=== PATIENT | male | born 1940 | race Caucasian/White ===

== ENCOUNTER 2020-03-04 14:03 | Inpatient (IN) ==
[2020-03-04] MEDS ORDERED: DECADRON INJ PRESERVATIVE-FREE IVP ONE (14:18)
[2020-03-04] MEDS ORDERED: ZITHROMAX INJ 500 MG VIAL 500 MG in NS 250 ML IV 250 ML IV SCH (14:21)
--- NOTE | 2020-03-04 14:26 | DR.URIAD ---
HPI Time Seen Time Seen by Provider: 03/04/20 14:17 PCP Primary Care Physician: MIGUEL CORONA HPI Comment HPI Comment: Patient presents with the complaint of subjective fever, cough x 3- 4 days. Notes that his is currently hospitalized secondary to COVID infection. Notes that he has been short of breath with walking and states that his oxygen saturation drops from the mid 90s to the mid 80s with exertion. Notes cough is productive of phlegm. He notes that he tested negative for COVID about 4 days ago, but he has had these symptoms for about 10 days. Complaint Chief Complaint:: PT TO ER WITH C/O > CCC, FEVER , WEAKNESS , AND SOB FOR THE LAST FOUR DAYS , BR PTS IS POSTIVE FOR COVID SHE IS IN [facility] DUE TO COVID ,,BR PT IS HAVING [place], PT'S LUNGS BLOCK ARE DIMINISHED .. PT DENIES FEVER AT HOME BUT STATES HE WENT TO HIS PCP OFFICE AND HIS TEMP WAS >..BR Source History Provided: Patient Mode of Arrival Mode of Arrival: Ambulatory Timing Onset of Chief Complaint: 03/01/20 PMH PMH Past Medical History: Yes Past Medical History: Diabetes and Hypertension Past Surgical History: Yes Past Surgical History Comment: CORNEAL SURGERY , Family History History of Family Medical Conditions: No Social History Does patient currently use any type of tobacco product: No Have you used tobacco products in the last 12 months: No Type of Tobacco Use: None Does any household member use tobacco: No Alcohol Use: None Do you use any recreational Drugs:: No Lives With: Family Lives Where: Home Infectious screening In the last 2 months have you had wt loss of >10#?: NO Have you had fever, night sweats or hemotysis?: No Have you traveled outside the country in the last 6 months?: No Isolation: Standard ROS Review of Systems Constitutional: See HPI and Fever Respiratoy: Productive Cough and Short of Breath All Other Systems: Reviewed and Negative PE Vital Signs Vitals: Temperature 98.2 F Pulse Rate 91 Respiratory Rate 30 Blood Pressure 160/77 O2 Sat by Pulse Oximetry 95 General Limitations: No Limitations General Appearance: Alert, In No Apparent Distress and Other (tremulous ) Head Head Exam: Normal Inspection, Atraumatic and Normocephalic Eyes Eye exam: Normal Appearance and EOMI ENT ENT Exam: Normal Exam and Normal Oropharynx Mouth Exam: Normal Inspection Neck Neck Exam: Normal Inspection and Trachea Midline Chest Chest Inspection: Normal Inspection and Symmetric Chest Wall Rise Respiratory Respiratory Exam: Bilateral: Rhonchi Cardiovascular Cardiovascular Exam: Regular Rate, Normal Rhythm and Normal Heart Sounds Abdominal Exam Abdominal Exam: Normal Inspection, Normal Bowel Sounds and Soft Extremeties Extremities Exam: Normal Inspection Neurologic Neurological Exam: Alert and Oriented X3 Psychiatric Psychiatric Exam: Normal Affect and Normal Mood Skin Skin Exam: Warm, Dry and Intact COURSE Treatment Treatment: Spoke with Dr. Gonzalez who accepts this patient for admission ROR Labs Reviewed Result Diagrams: 03/04/20 14:40 03/04/20 14:40 Laboratory: WBC 5.6 X10^3/uL (3.6-10.0) 03/04/20 14:40 RBC 4.63 X10^6/uL (4.7-6.0) L 03/04/20 14:40 Hgb 13.7 g/dL (13.5-18.0) 03/04/20 14:40 Hct 41.0 % (42.0-54.0) L 03/04/20 14:40 MCV 88.5 fL (80.0-100.0) 03/04/20 14:40 MCH 29.6 pg (27.0-34.0) 03/04/20 14:40 MCHC 33.5 g/dL (33.0-35.0) 03/04/20 14:40 RDW 14.0 % (11.6-16.5) 03/04/20 14:40 Plt Count 140 X10^3/uL (150.0-450.0) L 03/04/20 14:40 MPV 7.7 fL (7.4-11.0) 03/04/20 14:40 Neut % (Auto) 65.6 % (42.0-75.0) 03/04/20 14:40 Lymph % (Auto) 21.9 % (21.0-51.0) 03/04/20 14:40 [place] % (Auto) 12.0 % (0.0-13.0) 03/04/20 14:40 Eos % (Auto) 0.2 % (0.9-2.9) L 03/04/20 14:40 Baso % (Auto) 0.3 % (0.2-1.0) 03/04/20 14:40 Neut # (Auto) 3.6 x10^3/uL (2.2-4.8) 03/04/20 14:40 Lymph # (Auto) 1.2 X10^3/uL (1.3-2.9) L 03/04/20 14:40 [place] # (Auto) 0.7 x10^3/uL (0.3-0.8) 03/04/20 14:40 Eos # (Auto) 0.0 x10^3/uL (0.0-0.2) 03/04/20 14:40 Baso # (Auto) 0.0 X10^3/uL (0.0-0.1) 03/04/20 14:40 Absolute Nucleated RBC 0.0 /100WBC 03/04/20 14:40 D-Dimer 0.46 ug/ml (0.0-0.57) 03/04/20 14:40 Sample Site Rrad 03/04/20 14:46 ABG pH 7.440 (7.35-7.45) 03/04/20 14:46 ABG pCO2 34.0 mmHg (35.0-45.0) L 03/04/20 14:46 ABG pO2 57.0 mmHg (80.0-100.0) L 03/04/20 14:46 ABG HCO3 23.1 mmol/L (22-26) 03/04/20 14:46 ABG O2 Saturation 90.0 % (90-100) 03/04/20 14:46 ABG Base Excess -0.6 mmol/L (-2.0-2.0) 03/04/20 14:46 Capo Test Pos 03/04/20 14:46 A-a Gradient 50.0 mmHg 03/04/20 14:46 FiO2 21.0 03/04/20 14:46 Blood Gas Comments Pt melinda well elj 03/04/20 14:46 Sodium 141 mmol/L (136-145) 03/04/20 14:40 Corrected Sodium TNP 03/04/20 14:40 Potassium 4.5 mmol/L (3.5-5.1) 03/04/20 14:40 Chloride 104 mmol/L (98-107) 03/04/20 14:40 Carbon Dioxide 25.7 mmol/L (21-32) 03/04/20 14:40 BUN 26 mg/dL (7-18) H 03/04/20 14:40 Creatinine 2.21 mg/dL (0.70-1.30) H 03/04/20 14:40 Est GFR (MDRD) Af Amer 37 (>60) L 03/04/20 14:40 Est GFR (MDRD) Non-Af 31 (>60) L 03/04/20 14:40 Glucose 110 mg/dL (65-99) H 03/04/20 14:40 Calcium 9.2 mg/dL (8.5-10.1) 03/04/20 14:40 Corrected Calcium 9.8 mg/dL (8.5-10.1) 03/04/20 14:40 Total Bilirubin 0.60 mg/dL (0.2-1.0) 03/04/20 14:40 AST 63 Units/L (15-37) H 03/04/20 14:40 ALT 39 Units/L (12-78) 03/04/20 14:40 Alkaline Phosphatase 35 Units/L (46-116) L 03/04/20 14:40 C-Reactive Protein 94.80 mg/L (0-3.0) H 03/04/20 14:40 Total Protein 7.9 g/dL (6.4-8.2) 03/04/20 14:40 Albumin 3.3 g/dL (3.4-5.0) L 03/04/20 14:40 Globulin 4.6 g/dL (2.5-4.5) H 03/04/20 14:40 Albumin/Globulin Ratio 0.7 Ratio (1.1-2.1) L 03/04/20 14:40 Influenza Type A Ag Negative-presumptive (NEGATIVE) 03/04/20 14:29 Influenza Type B Ag Negative-presumptive (NEGATIVE) 03/04/20 14:29 Other Results Comments: HISTORY COUGH, COVID EXPOSURE STUDY CHEST, 1 VIEW COMPARISON None FINDINGS The trachea is midline. The cardiac silhouette is unremarkable. Patchy bilateral airspace opacities. The bony thorax is unremarkable. IMPRESSION Patchy bilateral airspace opacities concerning for pneumonia or viral pneumonitis. Electronically signed by: OSCAR ROLON (Mar 04, 2020 15:08:20) Opioid Opioid Risk Tool Total: 0 Total Score Risk Category: Low Risk Copyright: Krystian PALOMINO predicting aberrant behaviors Diagnosis Discharge Problem: Pneumonia due to 2019 novel coronavirus, Acute renal failure
[2020-03-04] MEDS ORDERED: NS 1000 ML 1,000 ML ONE (14:37)
[2020-03-04] MEDS ORDERED: ZITHROMAX INJ 500 MG VIAL IV ONE (14:37)
[2020-03-04] MEDS ORDERED: NS 250 ML IV 250 ML IV ONE (14:37)
[2020-03-04] MEDS ORDERED: DECADRON INJ ONE (14:37)
[2020-03-04 14:53] LABS: ABG ALLEN TEST POS; ABG BASE EXCESS -0.6 mmol/L (-2.0-2.0); ABG HCO3 23.1 mmol/L (22-26)
[2020-03-04 15:06] LABS: BASOPHILS % (AUTO) 0.3 % (0.2-1.0); EOSINOPHILS % (AUTO) 0.2 % (0.9-2.9); HEMOGLOBIN 13.7 g/dL (13.5-18.0); LYMPHOCYTES # (AUTO) 1.2 X10^3/uL (1.3-2.9); LYMPHOCYTES % (AUTO) 21.9 % (21.0-51.0); MEAN CORPUSCULAR HEMOGLOBIN 29.6 pg (27.0-34.0); MEAN CORPUSCULAR HGB CONC 33.5 g/dL (33.0-35.0); MEAN CORPUSCULAR VOLUME 88.5 fL (80.0-100.0); MEAN PLATELET VOLUME 7.7 fL (7.4-11.0); MONOCYTES # (AUTO) 0.7 x10^3/uL (0.3-0.8); NEUTROPHILS # (AUTO) 3.6 x10^3/uL (2.2-4.8); NEUTROPHILS % (AUTO) 65.6 % (42.0-75.0); PLATELET COUNT 140 X10^3/uL (150.0-450.0); RED BLOOD COUNT 4.63 X10^6/uL (4.7-6.0); WHITE BLOOD COUNT 5.6 X10^3/uL (3.6-10.0)
--- NOTE | 2020-03-04 15:06 | RAD ---
HISTORYCOUGH, COVID EXPOSURESTUDYCHEST, 1 VIEWCOMPARISONNoneFINDINGSThe trachea is midline. The cardiac silhouette is unremarkable. Patchy bilateral airspace opacities. The bony thorax is unremarkable.IMPRESSIONPatchy bilateral airspace opacities concerning for pneumonia or viral pneumonitis.Electronically signed by: OSCAR ROLON (Mar 04, 2020 15:08:20)
[2020-03-04 15:17] LABS: ALANINE AMINOTRANSFERASE 39 Units/L (12-78); ALBUMIN 3.3 g/dL (3.4-5.0); ALKALINE PHOSPHATASE 35 Units/L (46-116); ASPARTATE AMINO TRANSFERASE 63 Units/L (15-37); BLOOD UREA NITROGEN 26 mg/dL (7-18); CALCIUM 9.2 mg/dL (8.5-10.1); CARBON DIOXIDE 25.7 mmol/L (21-32); CHLORIDE 104 mmol/L (98-107); COR CA(FOR HYPOALB) 9.8 mg/dL (8.5-10.1); CREATININE 2.21 mg/dL (0.70-1.30); SODIUM 141 mmol/L (136-145); TOTAL PROTEIN 7.9 g/dL (6.4-8.2); eGFR NON BLACK RACES 31 (>60)
[2020-03-04 15:56] LABS: STREP A BY PCR NOT DETECTED (NOT DETECT)
[2020-03-04] MEDS: ZITHROMAX INJ 500 MG VIAL 500 MG in NS 250 ML IV 250 ML IV SCH (17:04)
[2020-03-04] MEDS: NS 1000 ML 1,000 ML IV SCH (17:46)
[2020-03-04] MEDS ORDERED: PULMICORT NEB TX 0.5 MG NEB ONE (18:54)
[2020-03-04] MEDS ORDERED: VENTOLIN or PROAIR HFA ONE (18:59)
[2020-03-04] MEDS: PULMICORT NEB TX 0.5 MG NEB SCH (20:05)
[2020-03-04] MEDS: VENTOLIN or PROAIR HFA IN SCH (20:05)
[2020-03-04] MEDS ORDERED: HumuLIN R ONE (20:31)
[2020-03-04] MEDS: HumuLIN R SUBCUT PRN ×2 (20:32→20:35)
[2020-03-05 05:05] LABS: BASOPHILS % (AUTO) 0.2 % (0.2-1.0); HEMATOCRIT 39.7 % (42.0-54.0); LYMPHOCYTES % (AUTO) 24.1 % (21.0-51.0); MEAN CORPUSCULAR HEMOGLOBIN 29.2 pg (27.0-34.0); MEAN CORPUSCULAR HGB CONC 32.7 g/dL (33.0-35.0); MEAN CORPUSCULAR VOLUME 89.3 fL (80.0-100.0); MONOCYTES # (AUTO) 0.3 x10^3/uL (0.3-0.8); MONOCYTES % (AUTO) 8.3 % (0.0-13.0); NEUTROPHILS # (AUTO) 2.7 x10^3/uL (2.2-4.8); NEUTROPHILS % (AUTO) 67.4 % (42.0-75.0); PLATELET COUNT 142 X10^3/uL (150.0-450.0); RED BLOOD COUNT 4.44 X10^6/uL (4.7-6.0); RED CELL DISTRIBUTION WIDTH 13.8 % (11.6-16.5); WHITE BLOOD COUNT 4.1 X10^3/uL (3.6-10.0)
[2020-03-05 05:08] LABS: ALBUMIN 2.8 g/dL (3.4-5.0); CARBON DIOXIDE 24.2 mmol/L (21-32); CREATININE 2.22 mg/dL (0.70-1.30); TOTAL PROTEIN 7.3 g/dL (6.4-8.2)
[2020-03-05 05:17] LABS: CKMB % 0.4 % (<4); CREATINE KINASE 245 Units/L (39-308); CREATINE KINASE MB < 1.0 ng/mL (0-4.0); TROPONIN I < 0.02 ng/mL (0-1.5)
[2020-03-05] MEDS: HumuLIN R SUBCUT PRN ×2 (06:31→21:39)
[2020-03-05 07:47] VITALS: BMI 34.0
[2020-03-05] MEDS ORDERED: REMDESIVIR (INVESTIGATIONAL DRUG GS-5734) 200 MG in NS 250 ML IV 250 ML IV SCH (08:53)
[2020-03-05] MEDS: PULMICORT NEB TX 0.5 MG NEB SCH ×2 (09:00→21:04)
[2020-03-05] MEDS: VENTOLIN or PROAIR HFA IN SCH ×4 (09:00→21:04)
[2020-03-05] MEDS ORDERED: COMBIGAN EYE DROPS OP SCH (09:00)
[2020-03-05] MEDS: ASPIRIN 81 MG CHEWTAB PO SCH (09:37)
[2020-03-05] MEDS: ZITHROMAX INJ 500 MG VIAL 500 MG in NS 250 ML IV 250 ML IV SCH (09:38)
[2020-03-05] MEDS: NORVASC TAB 5 MG PO SCH (09:38)
[2020-03-05] MEDS: SOLU-Medrol 125 MG VIAL IVP SCH ×2 (09:38→21:35)
[2020-03-05] MEDS: PROTONIX TAB 40 MG PO SCH (09:38)
[2020-03-05] MEDS: XANAX PO PRN ×2 (09:40→21:37)
[2020-03-05 10:17] LABS: CKMB % 0.5 % (<4); CREATINE KINASE 212 Units/L (39-308); CREATINE KINASE MB < 1.0 ng/mL (0-4.0); TROPONIN I < 0.02 ng/mL (0-1.5)
--- NOTE | 2020-03-05 11:33 | DR.H&P ---
H&P History & Physical for Day of: H&P Date: 03/05/20 Chief Complaint Chief Complaint: weakness, fever, diarrhea Allergies Allergies Allergy/AdvReac Type Severity Reaction Status Date / Time morphine Allergy Verified 03/04/20 14:20 zolpidem [From Ambien] Allergy Verified 03/04/20 14:20 History of Present Illness History of Present Illness: Mr. Ellison is a 79y/o male with a PMH of HTN, GERD, COPD ,anxiety presented with fever, cough, weakness and diarrhea. Patient does have O2 at home but does not use it all the time but lately has been. Patient's is currently in a hospital in [facility] with covid infection and patient had been exposed. He reports increased shortness of breath, dry cough and generalized weakness. Overnight, patient did have an episode where he ambulated to the bathroom and became really weak and sweaty. FSBG was 205, patient's HR was elevated along with RR. Cardiac enzymes were negative and patient's symptoms resolved. EKG done then was not really accurate as he was very shaky. Inn the ER patient was found to be covid positive. He is currently on 2L NC. Patient has not had any diarrhea since admission, tolerating PO intake. Labs: BUN/Cr: 32/2.22, Na: 146 K:5 WBC: 4.1 CRP: 94 AST/ALT: 50/36 AB.44/34/57/23 troponin (-) x 1 d-dimer (-) CXR: patchy opacities concerning for pna He received a dose of antibiotics and steroids and was started on IV hydration. Plan: will start Zosyn, solumedrol and Remdesivir. Continue Zithromax.Resume home medications. Continue gentle hydration, monitor AM labs. Repeat one more set of cardiac enzymes, repeat EKG. Titrate O2 as needed, aggressive pulmonary toilet, continue duonebs and pulmicort. Time spent on clinical assessment, reviewing labs and imaging, decision making and documentation greater than 75 mins. Past Medical History Past Medical History: Diabetes and Hypertension Past Surgical History Surgical History: Ortho Surgery and Other Family History Family Medical History: Cancer Social History Does patient currently use any type of tobacco product: No Have you used tobacco products in the last 12 months: No Type of Tobacco Use: None Does any household member use tobacco: No Alcohol Use: None Drug Use: None Medications Home Medications: morphine Allergy (Verified 03/04/20 14:20) zolpidem [From Ambien] Allergy (Verified 03/04/20 14:20) CONTINUE taking the following medications albuterol sulfate 2.5 mg INHALATION PRN PRN 03/04/20 [History] alprazolam [Xanax] 1 mg PO TID PRN 03/04/20 [History] amlodipine 5 mg PO DAILY 03/04/20 [History] aspirin 81 mg PO DAILY 03/04/20 [History] atorvastatin 10 mg PO HS 03/04/20 [History] brimonidine-timolol [Combigan] 1 drp OPHTHALMIC (EYE) DAILY 03/04/20 [History] erythromycin 1 applic OPHTHALMIC (EYE) HS 03/04/20 [History] fenofibrate nanocrystallized [Tricor] 145 mg PO HS 03/04/20 [History] furosemide 40 mg PO DAILY PRN 03/04/20 [History] hydroxyzine HCl 25 mg PO Q8H PRN 03/04/20 [History] loteprednol etabonate [Lotemax] 1 drp OPHTHALMIC (EYE) DAILY 03/04/20 [History] pantoprazole 40 mg PO DAILY 03/04/20 [History] potassium chloride 20 meq PO DAILY 03/04/20 [History] tamsulosin 0.4 mg PO HS 03/04/20 [History] Labs Result Diagrams: 03/05/20 04:30 03/05/20 04:30 Labs: Laboratory WBC 4.1 X10^3/uL (3.6-10.0) 03/05/20 04:30 RBC 4.44 X10^6/uL (4.7-6.0) L 03/05/20 04:30 Hgb 13.0 g/dL (13.5-18.0) L 03/05/20 04:30 Hct 39.7 % (42.0-54.0) L 03/05/20 04:30 MCV 89.3 fL (80.0-100.0) 03/05/20 04:30 MCH 29.2 pg (27.0-34.0) 03/05/20 04:30 MCHC 32.7 g/dL (33.0-35.0) L 03/05/20 04:30 RDW 13.8 % (11.6-16.5) 03/05/20 04:30 Plt Count 142 X10^3/uL (150.0-450.0) L 03/05/20 04:30 MPV 8.0 fL (7.4-11.0) 03/05/20 04:30 Neut % (Auto) 67.4 % (42.0-75.0) 03/05/20 04:30 Lymph % (Auto) 24.1 % (21.0-51.0) 03/05/20 04:30 [place] % (Auto) 8.3 % (0.0-13.0) 03/05/20 04:30 Eos % (Auto) 0.0 % (0.9-2.9) L 03/05/20 04:30 Baso % (Auto) 0.2 % (0.2-1.0) 03/05/20 04:30 Neut # (Auto) 2.7 x10^3/uL (2.2-4.8) 03/05/20 04:30 Lymph # (Auto) 1.0 X10^3/uL (1.3-2.9) L 03/05/20 04:30 [place] # (Auto) 0.3 x10^3/uL (0.3-0.8) 03/05/20 04:30 Eos # (Auto) 0.0 x10^3/uL (0.0-0.2) 03/05/20 04:30 Baso # (Auto) 0.0 X10^3/uL (0.0-0.1) 03/05/20 04:30 Absolute Nucleated RBC 0.1 /100WBC 03/05/20 04:30 D-Dimer 0.46 ug/ml (0.0-0.57) 03/04/20 14:40 Sample Site Rrad 03/04/20 14:46 ABG pH 7.440 (7.35-7.45) 03/04/20 14:46 ABG pCO2 34.0 mmHg (35.0-45.0) L 03/04/20 14:46 ABG pO2 57.0 mmHg (80.0-100.0) L 03/04/20 14:46 ABG HCO3 23.1 mmol/L (22-26) 03/04/20 14:46 ABG O2 Saturation 90.0 % (90-100) 03/04/20 14:46 ABG Base Excess -0.6 mmol/L (-2.0-2.0) 03/04/20 14:46 Capo Test Pos 03/04/20 14:46 A-a Gradient 50.0 mmHg 03/04/20 14:46 FiO2 21.0 03/04/20 14:46 Blood Gas Comments Pt melinda well elj 03/04/20 14:46 Sodium 143 mmol/L (136-145) 03/05/20 04:30 Corrected Sodium 146 mmol/L (136-145) H 03/05/20 04:30 Potassium 5.0 mmol/L (3.5-5.1) 03/05/20 04:30 Chloride 106 mmol/L (98-107) 03/05/20 04:30 Carbon Dioxide 24.2 mmol/L (21-32) 03/05/20 04:30 BUN 32 mg/dL (7-18) H 03/05/20 04:30 Creatinine 2.22 mg/dL (0.70-1.30) H 03/05/20 04:30 Est GFR (MDRD) Af Amer 37 (>60) L 03/05/20 04:30 Est GFR (MDRD) Non-Af 31 (>60) L 03/05/20 04:30 Glucose 231 mg/dL (65-99) H 03/05/20 04:30 POC Glucose (mg/dL) 205 mg/dL (65-99) H 03/05/20 04:40 Calcium 9.0 mg/dL (8.5-10.1) 03/05/20 04:30 Corrected Calcium 10.0 mg/dL (8.5-10.1) 03/05/20 04:30 Ferritin 1554 ng/mL (26-388) H 03/04/20 14:40 Total Bilirubin 0.40 mg/dL (0.2-1.0) 03/05/20 04:30 AST 50 Units/L (15-37) H 03/05/20 04:30 ALT 36 Units/L (12-78) 03/05/20 04:30 Alkaline Phosphatase 34 Units/L (46-116) L 03/05/20 04:30 Creatine Kinase 212 Units/L (39-308) 03/05/20 09:40 CK-MB (CK-2) < 1.0 ng/mL (0-4.0) 03/05/20 09:40 CK/CKMB % Calc 0.5 % (<4) 03/05/20 09:40 Troponin I < 0.02 ng/mL (0-1.5) 03/05/20 09:40 C-Reactive Protein 94.80 mg/L (0-3.0) H 03/04/20 14:40 Total Protein 7.3 g/dL (6.4-8.2) 03/05/20 04:30 Albumin 2.8 g/dL (3.4-5.0) L 03/05/20 04:30 Globulin 4.5 g/dL (2.5-4.5) 03/05/20 04:30 Albumin/Globulin Ratio 0.6 Ratio (1.1-2.1) L 03/05/20 04:30 Influenza Type A Ag Negative-presumptive (NEGATIVE) 03/04/20 14:29 Influenza Type B Ag Negative-presumptive (NEGATIVE) 03/04/20 14:29 SARS-CoV-2 (PCR) Positive (NEGATIVE) A 03/04/20 14:29 S. pyogenes (TEM-PCR) Not detected (NOT DETECT) 03/04/20 14:29 Review of Systems Constitutional: Fever, Sweats and Weakness Eyes: No Symptoms Reported ENT: No Symptoms Reported Respiratory: Cough, Shortness of Breath and SOB with Excertion Cardiovascular: No Symptoms Reported Gastrointestinal: Nausea and Diarrhea Genitourinary: No Symptoms Reported Musculoskeletal: No Symptoms Reported Skin: No Symptoms Reported Neurological: No Symptoms Reported Physical Exam Vital Signs: Temperature 97.6 F Pulse Rate 84 Respiratory Rate 25 Blood Pressure 156/77 O2 Sat by Pulse Oximetry 94 Oriented: Normal Eyes: Normal Ear: Normal Nose: Normal Respiratory: Diminished Throughout Cardiovascular: Normal Auscultation: Bowel Sounds: Normal Palpation: Normal Tenderness: Normal Skin: Decreased [place]urgur Musculoskeletal: Normal Psychiatric: Normal Mood Description: Calm Affect: Normal Speech Pattern: Clear and Appropriate Assessment/Plan (1) Acute hypoxemic respiratory failure due to COVID-19: Status: Acute (2) Pneumonia due to 2019 novel coronavirus: Status: Acute (3) Acute renal failure: Qualifiers: Acute renal failure type: unspecified Qualified Code(s): N17.9 - Acute kidney failure, unspecified Status: Acute (4) HTN (hypertension): Qualifiers: Hypertension type: essential hypertension Qualified Code(s): I10 - Essential (primary) hypertension Status: Acute (5) Anxiety: Status: Acute Review H&P Reviewed: Yes Patient was examined?: Yes
[2020-03-05] MEDS: ZOSYN VIAL 3.375 GRAMS 3.375 G in NS 100 ML IV + SPIKE MINIBAG* 100 ML IV SCH ×3 (12:11→21:37)
[2020-03-05] MEDS: DUONEB 0.5 MG/3 MG (3 mL) NEB SCH ×2 (13:55→21:05)
[2020-03-05] MEDS: ZINC SULFATE PO SCH ×2 (15:03→21:36)
[2020-03-05] MEDS: LOTEPREDNOL ETABONATE OP SCH (15:03)
[2020-03-05] MEDS: VITAMIN C PO SCH (15:04)
[2020-03-05] MEDS: VITAMIN A PO SCH (15:04)
[2020-03-05] MEDS: ALPHAGAN 0.2% OPHTH SOLN OP SCH (15:06)
[2020-03-05] MEDS: TIMOPTIC 0.5% EYE DROPS OP SCH (15:06)
[2020-03-05] MEDS ORDERED: NS 100 ML IV 100 ML IV ONE (15:10)
[2020-03-05] MEDS ORDERED: REMDESIVIR (INVESTIGATIONAL DRUG GS-5734) IV ONE (15:10)
[2020-03-05] MEDS ORDERED: NS 250 ML IV 250 ML IV ONE (16:56)
[2020-03-05] MEDS ORDERED: HEPARIN SODIUM INJ 5000 UNITS IVP SCH (21:00)
[2020-03-05] MEDS: FLOMAX PO SCH (21:30)
[2020-03-05] MEDS: NS 1000 ML 1,000 ML IV SCH ×2 (21:30→21:33)
[2020-03-05] MEDS: SNACK - Diabetic Appropriate PO SCH (21:30)
[2020-03-05] MEDS: LIPITOR TAB 20 MG PO SCH (21:32)
[2020-03-05] MEDS: ILOTYCIN OPHTH OINT OP SCH (21:32)
[2020-03-05] MEDS: TRICOR TAB 145 MG PO SCH (21:36)
[2020-03-06 05:27] LABS: CALCIUM 8.6 mg/dL (8.5-10.1); CARBON DIOXIDE 24.9 mmol/L (21-32); CREATININE 2.1 mg/dL (0.70-1.30)
[2020-03-06 05:47] LABS: BASOPHILS % (AUTO) 0.1 % (0.2-1.0); HEMATOCRIT 36.3 % (42.0-54.0); LYMPHOCYTES # (AUTO) 0.7 X10^3/uL (1.3-2.9); LYMPHOCYTES % (AUTO) 6.6 % (21.0-51.0); MEAN CORPUSCULAR HEMOGLOBIN 29.6 pg (27.0-34.0); MEAN CORPUSCULAR HGB CONC 33.1 g/dL (33.0-35.0); MEAN CORPUSCULAR VOLUME 89.4 fL (80.0-100.0); MEAN PLATELET VOLUME 8.4 fL (7.4-11.0); MONOCYTES # (AUTO) 0.5 x10^3/uL (0.3-0.8); MONOCYTES % (AUTO) 4.8 % (0.0-13.0); NEUTROPHILS # (AUTO) 9.3 x10^3/uL (2.2-4.8); NEUTROPHILS % (AUTO) 88.5 % (42.0-75.0); PLATELET COUNT 163 X10^3/uL (150.0-450.0); RED BLOOD COUNT 4.06 X10^6/uL (4.7-6.0); RED CELL DISTRIBUTION WIDTH 13.9 % (11.6-16.5); WHITE BLOOD COUNT 10.5 X10^3/uL (3.6-10.0)
[2020-03-06] MEDS: DUONEB 0.5 MG/3 MG (3 mL) NEB SCH ×3 (06:21→21:15)
[2020-03-06] MEDS: HumuLIN R SUBCUT PRN ×4 (06:25→20:46)
[2020-03-06] MEDS: ZOSYN VIAL 3.375 GRAMS 3.375 G in NS 100 ML IV + SPIKE MINIBAG* 100 ML IV SCH ×3 (06:25→21:51)
[2020-03-06] MEDS: ALPHAGAN 0.2% OPHTH SOLN OP SCH (08:54)
[2020-03-06] MEDS: VENTOLIN or PROAIR HFA IN SCH ×4 (08:55→21:15)
[2020-03-06] MEDS: ASPIRIN 81 MG CHEWTAB PO SCH (08:55)
[2020-03-06] MEDS: LOTEPREDNOL ETABONATE OP SCH (08:55)
[2020-03-06] MEDS: PULMICORT NEB TX 0.5 MG NEB SCH ×2 (08:55→21:15)
[2020-03-06] MEDS: PROTONIX TAB 40 MG PO SCH (08:56)
[2020-03-06] MEDS: NORVASC TAB 5 MG PO SCH (08:56)
[2020-03-06] MEDS: VITAMIN C PO SCH (08:57)
[2020-03-06] MEDS: ZINC SULFATE PO SCH ×2 (08:57→20:46)
[2020-03-06] MEDS: TIMOPTIC 0.5% EYE DROPS OP SCH (08:58)
[2020-03-06] MEDS: SOLU-Medrol 125 MG VIAL IVP SCH ×3 (08:58→20:41)
[2020-03-06] MEDS: ZITHROMAX INJ 500 MG VIAL 500 MG in NS 250 ML IV 250 ML IV SCH (08:59)
[2020-03-06] MEDS: VITAMIN A PO SCH (09:02)
[2020-03-06] MEDS: REMDESIVIR (INVESTIGATIONAL DRUG GS-5734) 100 MG in NS 250 ML IV 250 ML IV SCH (09:16)
[2020-03-06] MEDS: HEPARIN SODIUM INJ 5000 UNITS SC SCH ×2 (10:00→20:42)
--- NOTE | 2020-03-06 11:34 | PCM.PROG ---
Progress Note Progress Note for Day of Date of Exam: 03/06/20 Subjective Subjective: Patient seen at bedside, no events overnight. He states he feels slightly better today. He is on 2L O2 via NC. He has not had a BM in days so had a large one this morning and feels better. Denies N/V/D or abdominal pain. He still has mild cough. He has been afebrile. Labs: WBC 10.5 Hgb 12 BUN/Cr: 38/2.10 CRP: 41 Plan: continue Zosyn and Azithromycin, increase solumedrol to 80 mg qH. Will repeat CXR today as patient seems to be wheezing more on exam. Continue Remdesivir. Aggressive pulmonary toilet with duonebs, pulmicort and IS. Monitor AM labs. Past Medical Family Social History Past Med/Fam/Surg Hx: No changes since H&P Allergies: Allergies morphine Allergy (Verified 03/04/20 14:20) zolpidem [From Ambien] Allergy (Verified 03/04/20 14:20) Review of Systems ROS: No change since H&P Vital Signs and I&O's Vital Signs: Temperature 98.2 F Pulse Rate 97 Respiratory Rate 226 Blood Pressure 155/70 O2 Sat by Pulse Oximetry 91 Intake and Output: Intake & Output 03/03/20 03/04/20 03/05/20 03/06/20 23:59 23:59 23:59 23:59 Intake Total 699 / 699 3923 / 3923 914 / 914 Output Total 1050 / 1050 620 / 620 Balance 699 / 699 2873 / 2873 294 / 294 Physical Exam Oriented: Normal Eyes: Normal Ear: Normal Nose: Normal Respiratory: Generalized and Wheezes Cardiovascular: Normal Auscultation: Bowel Sounds: Normal Tenderness: Normal Skin: Decreased [place]urgur Musculoskeletal: Normal Psychiatric: Normal Mood Description: Calm Affect: Normal Speech Pattern: Clear and Appropriate Laboratory and Diagnostics Result Diagrams: 03/06/20 04:30 03/06/20 04:30 Labs: Laboratory WBC 10.5 X10^3/uL (3.6-10.0) H 03/06/20 04:30 RBC 4.06 X10^6/uL (4.7-6.0) L 03/06/20 04:30 Hgb 12.0 g/dL (13.5-18.0) L 03/06/20 04:30 Hct 36.3 % (42.0-54.0) L 03/06/20 04:30 MCV 89.4 fL (80.0-100.0) 03/06/20 04:30 MCH 29.6 pg (27.0-34.0) 03/06/20 04:30 MCHC 33.1 g/dL (33.0-35.0) 03/06/20 04:30 RDW 13.9 % (11.6-16.5) 03/06/20 04:30 Plt Count 163 X10^3/uL (150.0-450.0) 03/06/20 04:30 MPV 8.4 fL (7.4-11.0) 03/06/20 04:30 Neut % (Auto) 88.5 % (42.0-75.0) H 03/06/20 04:30 Lymph % (Auto) 6.6 % (21.0-51.0) L 03/06/20 04:30 [place] % (Auto) 4.8 % (0.0-13.0) 03/06/20 04:30 Eos % (Auto) 0.0 % (0.9-2.9) L 03/06/20 04:30 Baso % (Auto) 0.1 % (0.2-1.0) L 03/06/20 04:30 Neut # (Auto) 9.3 x10^3/uL (2.2-4.8) H 03/06/20 04:30 Lymph # (Auto) 0.7 X10^3/uL (1.3-2.9) L 03/06/20 04:30 [place] # (Auto) 0.5 x10^3/uL (0.3-0.8) 03/06/20 04:30 Eos # (Auto) 0.0 x10^3/uL (0.0-0.2) 03/06/20 04:30 Baso # (Auto) 0.0 X10^3/uL (0.0-0.1) 03/06/20 04:30 Absolute Nucleated RBC 0.1 /100WBC 03/06/20 04:30 D-Dimer 0.46 ug/ml (0.0-0.57) 03/04/20 14:40 Sample Site Rrad 03/04/20 14:46 ABG pH 7.440 (7.35-7.45) 03/04/20 14:46 ABG pCO2 34.0 mmHg (35.0-45.0) L 03/04/20 14:46 ABG pO2 57.0 mmHg (80.0-100.0) L 03/04/20 14:46 ABG HCO3 23.1 mmol/L (22-26) 03/04/20 14:46 ABG O2 Saturation 90.0 % (90-100) 03/04/20 14:46 ABG Base Excess -0.6 mmol/L (-2.0-2.0) 03/04/20 14:46 Capo Test Pos 03/04/20 14:46 A-a Gradient 50.0 mmHg 03/04/20 14:46 FiO2 21.0 03/04/20 14:46 Blood Gas Comments Pt melinda well elj 03/04/20 14:46 Sodium 143 mmol/L (136-145) 03/06/20 04:30 Corrected Sodium 147 mmol/L (136-145) H 03/06/20 04:30 Potassium 4.8 mmol/L (3.5-5.1) 03/06/20 04:30 Chloride 109 mmol/L (98-107) H 03/06/20 04:30 Carbon Dioxide 24.9 mmol/L (21-32) 03/06/20 04:30 BUN 38 mg/dL (7-18) H 03/06/20 04:30 Creatinine 2.10 mg/dL (0.70-1.30) H 03/06/20 04:30 Est GFR (MDRD) Af Amer 39 (>60) L 03/06/20 04:30 Est GFR (MDRD) Non-Af 33 (>60) L 03/06/20 04:30 Glucose 275 mg/dL (65-99) H 03/06/20 04:30 POC Glucose (mg/dL) 251 mg/dL (65-99) H 03/06/20 05:08 Calcium 8.6 mg/dL (8.5-10.1) 03/06/20 04:30 Corrected Calcium 10.0 mg/dL (8.5-10.1) 03/05/20 04:30 Ferritin 1554 ng/mL (26-388) H 03/04/20 14:40 Total Bilirubin 0.40 mg/dL (0.2-1.0) 03/05/20 04:30 AST 50 Units/L (15-37) H 03/05/20 04:30 ALT 36 Units/L (12-78) 03/05/20 04:30 Alkaline Phosphatase 34 Units/L (46-116) L 03/05/20 04:30 Creatine Kinase 212 Units/L (39-308) 03/05/20 09:40 CK-MB (CK-2) < 1.0 ng/mL (0-4.0) 03/05/20 09:40 CK/CKMB % Calc 0.5 % (<4) 03/05/20 09:40 Troponin I < 0.02 ng/mL (0-1.5) 03/05/20 09:40 C-Reactive Protein 41.10 mg/L (0-3.0) H 03/06/20 04:30 Total Protein 7.3 g/dL (6.4-8.2) 03/05/20 04:30 Albumin 2.8 g/dL (3.4-5.0) L 03/05/20 04:30 Globulin 4.5 g/dL (2.5-4.5) 03/05/20 04:30 Albumin/Globulin Ratio 0.6 Ratio (1.1-2.1) L 03/05/20 04:30 Influenza Type A Ag Negative-presumptive (NEGATIVE) 03/04/20 14:29 Influenza Type B Ag Negative-presumptive (NEGATIVE) 03/04/20 14:29 SARS-CoV-2 (PCR) Positive (NEGATIVE) A 03/04/20 14:29 S. pyogenes (TEM-PCR) Not detected (NOT DETECT) 03/04/20 14:29 Plan (1) Acute hypoxemic respiratory failure due to COVID-19: Status: Acute (2) Pneumonia due to 2019 novel coronavirus: Status: Acute (3) Acute renal failure: Status: Acute Qualifiers: Acute renal failure type: unspecified Qualified Code(s): N17.9 - Acute kidney failure, unspecified (4) HTN (hypertension): Status: Acute Qualifiers: Hypertension type: essential hypertension Qualified Code(s): I10 - Essential (primary) hypertension (5) Anxiety: Status: Acute
[2020-03-06] MEDS: NS 1000 ML 1,000 ML IV SCH (12:35)
--- NOTE | 2020-03-06 12:58 | RAD ---
HISTORYCovid +; hypoxiaSTUDYCHEST, 1 VIEWCOMPARISONOctober [id number] chest x-rayFINDINGSStable size and morphology of the cardiac silhouette. There are incompletely resolved hazy opacities within the bilateral lung bases and left perihilar region no accumulating pleural fluid collections, free air or pneumothorax.IMPRESSIONStable chest x-ray with patchy bilateral airspace opacities concerning for atypical pneumonia.Electronically signed by: ANSLEY GUEVARA (Mar 06, 2020 12:58:11)
[2020-03-06] MEDS: FLOMAX PO SCH (20:41)
[2020-03-06] MEDS: SNACK - Diabetic Appropriate PO SCH (20:41)
[2020-03-06] MEDS: LIPITOR TAB 20 MG PO SCH (20:43)
[2020-03-06] MEDS: ILOTYCIN OPHTH OINT OP SCH (20:43)
[2020-03-06] MEDS: TRICOR TAB 145 MG PO SCH (20:44)
[2020-03-06] MEDS: XANAX PO PRN (20:46)
[2020-03-07] MEDS: NS 1000 ML 1,000 ML IV SCH (01:30)
[2020-03-07] MEDS: SOLU-Medrol 125 MG VIAL IVP SCH ×3 (04:58→21:00)
[2020-03-07 05:14] LABS: BASOPHILS % (AUTO) 0.1 % (0.2-1.0); HEMATOCRIT 35.3 % (42.0-54.0); HEMOGLOBIN 11.6 g/dL (13.5-18.0); LYMPHOCYTES # (AUTO) 0.4 X10^3/uL (1.3-2.9); LYMPHOCYTES % (AUTO) 4.5 % (21.0-51.0); MEAN CORPUSCULAR HEMOGLOBIN 29.3 pg (27.0-34.0); MEAN CORPUSCULAR HGB CONC 32.8 g/dL (33.0-35.0); MEAN CORPUSCULAR VOLUME 89.3 fL (80.0-100.0); MEAN PLATELET VOLUME 8.5 fL (7.4-11.0); MONOCYTES # (AUTO) 0.4 x10^3/uL (0.3-0.8); MONOCYTES % (AUTO) 4.6 % (0.0-13.0); NEUTROPHILS # (AUTO) 8.8 x10^3/uL (2.2-4.8); NEUTROPHILS % (AUTO) 90.8 % (42.0-75.0); PLATELET COUNT 173 X10^3/uL (150.0-450.0); RED BLOOD COUNT 3.95 X10^6/uL (4.7-6.0); RED CELL DISTRIBUTION WIDTH 14.1 % (11.6-16.5); WHITE BLOOD COUNT 9.6 X10^3/uL (3.6-10.0)
[2020-03-07 05:26] LABS: CALCIUM 8.3 mg/dL (8.5-10.1); CARBON DIOXIDE 22.2 mmol/L (21-32); CREATININE 2.06 mg/dL (0.70-1.30)
[2020-03-07] MEDS: ZOSYN VIAL 3.375 GRAMS 3.375 G in NS 100 ML IV + SPIKE MINIBAG* 100 ML IV SCH ×3 (05:38→22:00)
[2020-03-07] MEDS: HumuLIN R SUBCUT PRN ×4 (05:39→22:19)
[2020-03-07 05:44] LABS: PLATELET MORPHOLOGY COMMENT NORMAL (NORMAL)
[2020-03-07] MEDS: DUONEB 0.5 MG/3 MG (3 mL) NEB SCH ×3 (05:51→20:50)
[2020-03-07] MEDS: PULMICORT NEB TX 0.5 MG NEB SCH ×2 (09:10→20:50)
[2020-03-07] MEDS: VENTOLIN or PROAIR HFA IN SCH ×4 (09:10→20:50)
[2020-03-07] MEDS: ALPHAGAN 0.2% OPHTH SOLN OP SCH (09:38)
[2020-03-07] MEDS: ASPIRIN 81 MG CHEWTAB PO SCH (09:38)
[2020-03-07] MEDS: LOTEPREDNOL ETABONATE OP SCH (09:39)
[2020-03-07] MEDS: NORVASC TAB 5 MG PO SCH (09:39)
[2020-03-07] MEDS: PROTONIX TAB 40 MG PO SCH (09:40)
[2020-03-07] MEDS: VITAMIN C PO SCH (09:40)
[2020-03-07] MEDS: REMDESIVIR (INVESTIGATIONAL DRUG GS-5734) 100 MG in NS 250 ML IV 250 ML IV SCH (09:40)
[2020-03-07] MEDS: TIMOPTIC 0.5% EYE DROPS OP SCH (09:40)
[2020-03-07] MEDS: VITAMIN D3 125 mcg (5,000 UNITS) PO SCH (09:41)
[2020-03-07] MEDS: ZINC SULFATE PO SCH ×2 (09:41→21:00)
[2020-03-07] MEDS: ZITHROMAX INJ 500 MG VIAL 500 MG in NS 250 ML IV 250 ML IV SCH (09:42)
[2020-03-07] MEDS: HEPARIN SODIUM INJ 5000 UNITS SC SCH ×2 (09:42→21:00)
[2020-03-07] MEDS: TUSSIONEX PENNKINETIC SUSP PO PRN (11:30)
--- NOTE | 2020-03-07 12:04 | PCM.PROG ---
Progress Note Progress Note for Day of Date of Exam: 03/07/20 Subjective Subjective: Patient seen at bedside, no events overnight. He was placed on 6L non-rebreather last night. This morning he is on 3 L right now. He states his breathing is better when he is laying in bed. He does not wear his oxygen when he walks around in the room so then he feels SOB. Denies N/V/D or abdominal pain. He still has mild cough. He has been afebrile. Labs: WBC 9.6 Hgb 11.6 BUN/Cr: 39/2.06 CXR: suggestive of atypical pneumonia, bilateral patchy opacities. Plan: continue Zosyn and Azithromycin, continue solumedrol. Continue Remdesivir. Aggressive pulmonary toilet with duonebs, pulmicort and IS. DC IVF due to crackles on exam and mild LE edema. Monitor AM labs. Wean O2 as tolerated, keep sats > 90%. Past Medical Family Social History Past Med/Fam/Surg Hx: No changes since H&P Allergies: Allergies morphine Allergy (Verified 03/04/20 14:20) zolpidem [From Ambien] Allergy (Verified 03/04/20 14:20) Review of Systems ROS: No change since H&P Vital Signs and I&O's Vital Signs: Temperature 97.6 F Pulse Rate 93 Respiratory Rate 28 Blood Pressure 152/69 O2 Sat by Pulse Oximetry 91 Intake and Output: Intake & Output 03/04/20 03/05/20 03/06/20 03/07/20 23:59 23:59 23:59 23:59 Intake Total 699 / 699 3923 / 3923 3862 / 3862 938 / 938 Output Total 1050 / 1050 2070 / 2070 700 / 700 Balance 699 / 699 2873 / 2873 1792 / 1792 238 / 238 Physical Exam Oriented: Normal Eyes: Normal Ear: Normal Nose: Normal Respiratory: Generalized, Diminished and Wheezes (improved ) Cardiovascular: Normal and Edema Auscultation: Bowel Sounds: Normal Tenderness: Normal Skin: Decreased Turgur Musculoskeletal: Normal Psychiatric: Normal Mood Description: Calm Affect: Normal Speech Pattern: Clear and Appropriate Laboratory and Diagnostics Result Diagrams: 03/07/20 04:15 03/07/20 04:15 Labs: 03/04/20 14:45 Blood Blood Culture - Preliminary 03/04/20 14:40 Blood Blood Culture - Preliminary Laboratory WBC 9.6 X10^3/uL (3.6-10.0) 03/07/20 04:15 RBC 3.95 X10^6/uL (4.7-6.0) L 03/07/20 04:15 Hgb 11.6 g/dL (13.5-18.0) L 03/07/20 04:15 Hct 35.3 % (42.0-54.0) L 03/07/20 04:15 MCV 89.3 fL (80.0-100.0) 03/07/20 04:15 MCH 29.3 pg (27.0-34.0) 03/07/20 04:15 MCHC 32.8 g/dL (33.0-35.0) L 03/07/20 04:15 RDW 14.1 % (11.6-16.5) 03/07/20 04:15 Plt Count 173 X10^3/uL (150.0-450.0) 03/07/20 04:15 Plt Count Comment Adequate (ADEQUATE) 03/07/20 04:15 MPV 8.5 fL (7.4-11.0) 03/07/20 04:15 Neut % (Auto) 90.8 % (42.0-75.0) H 03/07/20 04:15 Lymph % (Auto) 4.5 % (21.0-51.0) L 03/07/20 04:15 [place] % (Auto) 4.6 % (0.0-13.0) 03/07/20 04:15 Eos % (Auto) 0.0 % (0.9-2.9) L 03/07/20 04:15 Baso % (Auto) 0.1 % (0.2-1.0) L 03/07/20 04:15 Neut # (Auto) 8.8 x10^3/uL (2.2-4.8) H 03/07/20 04:15 Lymph # (Auto) 0.4 X10^3/uL (1.3-2.9) L 03/07/20 04:15 [place] # (Auto) 0.4 x10^3/uL (0.3-0.8) 03/07/20 04:15 Eos # (Auto) 0.0 x10^3/uL (0.0-0.2) 03/07/20 04:15 Baso # (Auto) 0.0 X10^3/uL (0.0-0.1) 03/07/20 04:15 Absolute Nucleated RBC 0.0 /100WBC 03/07/20 04:15 Total Counted 100 03/07/20 04:15 Neutrophils % (Manual) 93 % (39-76) H 03/07/20 04:15 Lymphocytes % (Manual) 6 % (13-43) L 03/07/20 04:15 Monocytes % (Manual) 1 % (4-9) L 03/07/20 04:15 Plt Morphology Comment Normal (NORMAL) 03/07/20 04:15 RBC Morphology Normal (NORMAL) 03/07/20 04:15 D-Dimer 0.46 ug/ml (0.0-0.57) 03/04/20 14:40 Sample Site Rrad 03/04/20 14:46 ABG pH 7.440 (7.35-7.45) 03/04/20 14:46 ABG pCO2 34.0 mmHg (35.0-45.0) L 03/04/20 14:46 ABG pO2 57.0 mmHg (80.0-100.0) L 03/04/20 14:46 ABG HCO3 23.1 mmol/L (22-26) 03/04/20 14:46 ABG O2 Saturation 90.0 % (90-100) 03/04/20 14:46 ABG Base Excess -0.6 mmol/L (-2.0-2.0) 03/04/20 14:46 Capo Test Pos 03/04/20 14:46 A-a Gradient 50.0 mmHg 03/04/20 14:46 FiO2 21.0 03/04/20 14:46 Blood Gas Comments Pt melinda well elj 03/04/20 14:46 Sodium 144 mmol/L (136-145) 03/07/20 04:15 Corrected Sodium 147 mmol/L (136-145) H 03/07/20 04:15 Potassium 4.7 mmol/L (3.5-5.1) 03/07/20 04:15 Chloride 111 mmol/L (98-107) H 03/07/20 04:15 Carbon Dioxide 22.2 mmol/L (21-32) 03/07/20 04:15 BUN 39 mg/dL (7-18) H 03/07/20 04:15 Creatinine 2.06 mg/dL (0.70-1.30) H 03/07/20 04:15 Est GFR (MDRD) Af Amer 40 (>60) L 03/07/20 04:15 Est GFR (MDRD) Non-Af 33 (>60) L 03/07/20 04:15 Glucose 228 mg/dL (65-99) H 03/07/20 04:15 POC Glucose (mg/dL) 232 mg/dL (65-99) H 03/07/20 11:28 Calcium 8.3 mg/dL (8.5-10.1) L 03/07/20 04:15 Corrected Calcium 10.0 mg/dL (8.5-10.1) 03/05/20 04:30 Ferritin 1554 ng/mL (26-388) H 03/04/20 14:40 Total Bilirubin 0.40 mg/dL (0.2-1.0) 03/05/20 04:30 AST 50 Units/L (15-37) H 03/05/20 04:30 ALT 36 Units/L (12-78) 03/05/20 04:30 Alkaline Phosphatase 34 Units/L (46-116) L 03/05/20 04:30 Creatine Kinase 212 Units/L (39-308) 03/05/20 09:40 CK-MB (CK-2) < 1.0 ng/mL (0-4.0) 03/05/20 09:40 CK/CKMB % Calc 0.5 % (<4) 03/05/20 09:40 Troponin I < 0.02 ng/mL (0-1.5) 03/05/20 09:40 C-Reactive Protein 41.10 mg/L (0-3.0) H 03/06/20 04:30 Total Protein 7.3 g/dL (6.4-8.2) 03/05/20 04:30 Albumin 2.8 g/dL (3.4-5.0) L 03/05/20 04:30 Globulin 4.5 g/dL (2.5-4.5) 03/05/20 04:30 Albumin/Globulin Ratio 0.6 Ratio (1.1-2.1) L 03/05/20 04:30 Influenza Type A Ag Negative-presumptive (NEGATIVE) 03/04/20 14:29 Influenza Type B Ag Negative-presumptive (NEGATIVE) 03/04/20 14:29 SARS-CoV-2 (PCR) Positive (NEGATIVE) A 03/04/20 14:29 S. pyogenes (TEM-PCR) Not detected (NOT DETECT) 03/04/20 14:29 Plan (1) Acute hypoxemic respiratory failure due to COVID-19: Status: Acute (2) Pneumonia due to 2019 novel coronavirus: Status: Acute (3) Acute renal failure: Status: Acute Qualifiers: Acute renal failure type: unspecified Qualified Code(s): N17.9 - Acute kidney failure, unspecified (4) HTN (hypertension): Status: Acute Qualifiers: Hypertension type: essential hypertension Qualified Code(s): I10 - Essential (primary) hypertension (5) Anxiety: Status: Acute
[2020-03-07] MEDS: SNACK - Diabetic Appropriate PO SCH (20:00)
[2020-03-07] MEDS: XANAX PO PRN (21:00)
[2020-03-07] MEDS: ILOTYCIN OPHTH OINT OP SCH (21:00)
[2020-03-07] MEDS: FLOMAX PO SCH (21:00)
[2020-03-07] MEDS: TRICOR TAB 145 MG PO SCH (21:00)
[2020-03-07] MEDS: LIPITOR TAB 20 MG PO SCH (21:00)
[2020-03-08] MEDS: SOLU-Medrol 125 MG VIAL IVP SCH ×3 (03:59→21:44)
[2020-03-08 05:21] LABS: BASOPHILS % (AUTO) 0.1 % (0.2-1.0); HEMOGLOBIN 11.5 g/dL (13.5-18.0); LYMPHOCYTES # (AUTO) 0.3 X10^3/uL (1.3-2.9); LYMPHOCYTES % (AUTO) 4.6 % (21.0-51.0); MEAN CORPUSCULAR HEMOGLOBIN 29.5 pg (27.0-34.0); MEAN CORPUSCULAR HGB CONC 32.9 g/dL (33.0-35.0); MEAN CORPUSCULAR VOLUME 89.6 fL (80.0-100.0); MEAN PLATELET VOLUME 8.7 fL (7.4-11.0); MONOCYTES # (AUTO) 0.3 x10^3/uL (0.3-0.8); MONOCYTES % (AUTO) 4.4 % (0.0-13.0); NEUTROPHILS # (AUTO) 6.9 x10^3/uL (2.2-4.8); NEUTROPHILS % (AUTO) 90.9 % (42.0-75.0); PLATELET COUNT 190 X10^3/uL (150.0-450.0); RED BLOOD COUNT 3.91 X10^6/uL (4.7-6.0); RED CELL DISTRIBUTION WIDTH 14.4 % (11.6-16.5); WHITE BLOOD COUNT 7.6 X10^3/uL (3.6-10.0)
[2020-03-08 05:36] LABS: ALBUMIN 2.4 g/dL (3.4-5.0); CALCIUM 8.3 mg/dL (8.5-10.1); CARBON DIOXIDE 22.7 mmol/L (21-32); COR CA(FOR HYPOALB) 9.6 mg/dL (8.5-10.1); CREATININE 1.91 mg/dL (0.70-1.30); TOTAL PROTEIN 6.4 g/dL (6.4-8.2)
[2020-03-08] MEDS: DUONEB 0.5 MG/3 MG (3 mL) NEB SCH ×3 (05:40→21:08)
[2020-03-08 06:02] LABS: PLATELET MORPHOLOGY COMMENT NORMAL (NORMAL)
[2020-03-08] MEDS: HumuLIN R SUBCUT PRN ×3 (06:15→17:48)
[2020-03-08] MEDS: ZOSYN VIAL 3.375 GRAMS 3.375 G in NS 100 ML IV + SPIKE MINIBAG* 100 ML IV SCH ×3 (06:15→21:42)
[2020-03-08] MEDS: XANAX PO PRN ×3 (07:00→21:42)
[2020-03-08 07:31] LABS: BILIRUBIN,URINE NEGATIVE (NEGATIVE); BLOOD/HEMOGLOBIN,URINE 3+ (NEGATIVE); GLUCOSE, URINE 4+ (NEGATIVE); KETONES,URINE NEGATIVE (NEGATIVE); LEUKOCYTE ESTERASE ,URINE NEGATIVE (NEGATIVE); NITRITES,URINE NEGATIVE (NEGATIVE); PROTEIN,URINE 1+ (NEGATIVE); UROBILINOGEN,URINE NORMAL (NORMAL)
[2020-03-08 07:41] LABS: APPEARANCE,URINE CLEAR (CLEAR); COLOR,URINE YELLOW (YELLOW)
[2020-03-08 07:42] LABS: BACTERIA,URINE NEGATIVE /HPF (NEGATIVE); SQUAMOUS EPITHELIAL CELL,UR RARE /HPF (NEGATIVE)
[2020-03-08 08:10] LABS: ABG BASE EXCESS 0.9 mmol/L (-2.0-2.0); ABG HCO3 26.6 mmol/L (22-26)
[2020-03-08 08:11] LABS: ABG ALLEN TEST POS
--- NOTE | 2020-03-08 09:05 | PCM.PROG ---
Progress Note Progress Note for Day of Date of Exam: 03/08/20 Subjective Subjective: Patient seen at bedside, overnight he was noted to desat when using the urinal. He was initially on 6L NRB but his sats remained in the 80s so he was placed on the BiPAP. Walker was also placed this morning. He is currently resting, sats in mid 90s, RR around 19. Patient was also noted to be confused. Labs: Hgb 11.5 Na: 149 Cl: 111 BUN/Cr: 42/1.91 Plan: repeat CXR and ABG today, continue Zosyn and Azithromax, continue solumedrol and Remdesivir. Will order plasma and transfuse when available. Continue BiPAP for now, switch to hi-flow as tolerated. Monitor AM labs. Will also get an ECHO to eval LV function. Past Medical Family Social History Past Med/Fam/Surg Hx: No changes since H&P Allergies: Allergies morphine Allergy (Verified 03/04/20 14:20) zolpidem [From Ambien] Allergy (Verified 03/04/20 14:20) Review of Systems ROS: No change since H&P Vital Signs and I&O's Vital Signs: Temperature 97.9 F Pulse Rate 89 Respiratory Rate 21 Blood Pressure 157/74 O2 Sat by Pulse Oximetry 91 Intake and Output: Intake & Output 03/05/20 03/06/20 03/07/20 03/08/20 23:59 23:59 23:59 23:59 Intake Total 3923 / 3923 3862 / 3862 3765 / 3765 410 / 410 Output Total 1050 / 1050 2070 / 2070 1350 / 1350 900 / 900 Balance 2873 / 2873 1792 / 1792 2415 / 2415 -490 / -490 Physical Exam Oriented: Unable to test Eyes: Normal Ear: Normal Nose: Normal Respiratory: Generalized, Diminished and Wheezes Cardiovascular: Normal and Edema Auscultation: Bowel Sounds: Normal Tenderness: Normal Skin: Decreased Turgur Musculoskeletal: Normal and Arm (mild edema noted in both arms ) Psychiatric: Normal Mood Description: Calm Affect: Anxious Speech Pattern: Artificially Ventilated (on BiPAP ) Laboratory and Diagnostics Result Diagrams: 03/08/20 04:40 03/08/20 04:40 Labs: 03/04/20 14:40 Blood Blood Culture - Preliminary 03/04/20 14:45 Blood Blood Culture - Preliminary Laboratory WBC 7.6 X10^3/uL (3.6-10.0) 03/08/20 04:40 RBC 3.91 X10^6/uL (4.7-6.0) L 03/08/20 04:40 Hgb 11.5 g/dL (13.5-18.0) L 03/08/20 04:40 Hct 35.0 % (42.0-54.0) L 03/08/20 04:40 MCV 89.6 fL (80.0-100.0) 03/08/20 04:40 MCH 29.5 pg (27.0-34.0) 03/08/20 04:40 MCHC 32.9 g/dL (33.0-35.0) L 03/08/20 04:40 RDW 14.4 % (11.6-16.5) 03/08/20 04:40 Plt Count 190 X10^3/uL (150.0-450.0) 03/08/20 04:40 Plt Count Comment Adequate (ADEQUATE) 03/08/20 04:40 MPV 8.7 fL (7.4-11.0) 03/08/20 04:40 Neut % (Auto) 90.9 % (42.0-75.0) H 03/08/20 04:40 Lymph % (Auto) 4.6 % (21.0-51.0) L 03/08/20 04:40 [place] % (Auto) 4.4 % (0.0-13.0) 03/08/20 04:40 Eos % (Auto) 0.0 % (0.9-2.9) L 03/08/20 04:40 Baso % (Auto) 0.1 % (0.2-1.0) L 03/08/20 04:40 Neut # (Auto) 6.9 x10^3/uL (2.2-4.8) H 03/08/20 04:40 Lymph # (Auto) 0.3 X10^3/uL (1.3-2.9) L 03/08/20 04:40 [place] # (Auto) 0.3 x10^3/uL (0.3-0.8) 03/08/20 04:40 Eos # (Auto) 0.0 x10^3/uL (0.0-0.2) 03/08/20 04:40 Baso # (Auto) 0.0 X10^3/uL (0.0-0.1) 03/08/20 04:40 Absolute Nucleated RBC 0.1 /100WBC 03/08/20 04:40 Total Counted 100 03/08/20 04:40 Neutrophils % (Manual) 92 % (39-76) H 03/08/20 04:40 Lymphocytes % (Manual) 8 % (13-43) L 03/08/20 04:40 Monocytes % (Manual) 1 % (4-9) L 03/07/20 04:15 Plt Morphology Comment Normal (NORMAL) 03/08/20 04:40 RBC Morphology Normal (NORMAL) 03/08/20 04:40 D-Dimer 0.46 ug/ml (0.0-0.57) 03/04/20 14:40 Sample Site Lrad 03/08/20 08:03 ABG pH 7.370 (7.35-7.45) 03/08/20 08:03 ABG pCO2 46.0 mmHg (35.0-45.0) H 03/08/20 08:03 ABG pO2 75.0 mmHg (80.0-100.0) L 03/08/20 08:03 ABG HCO3 26.6 mmol/L (22-26) H 03/08/20 08:03 ABG O2 Saturation 94.0 % (90-100) 03/08/20 08:03 ABG Base Excess 0.9 mmol/L (-2.0-2.0) 03/08/20 08:03 Capo Test Pos 03/08/20 08:03 A-a Gradient 224.0 mmHg 03/08/20 08:03 FiO2 50.0 03/08/20 08:03 Blood Gas Comments Pt melinda well elj cdn 03/08/20 08:03 Sodium 144 mmol/L (136-145) 03/08/20 04:40 Corrected Sodium 149 mmol/L (136-145) H 03/08/20 04:40 Potassium 4.7 mmol/L (3.5-5.1) 03/08/20 04:40 Chloride 111 mmol/L (98-107) H 03/08/20 04:40 Carbon Dioxide 22.7 mmol/L (21-32) 03/08/20 04:40 BUN 42 mg/dL (7-18) H 03/08/20 04:40 Creatinine 1.91 mg/dL (0.70-1.30) H 03/08/20 04:40 Est GFR (MDRD) Af Amer 44 (>60) L 03/08/20 04:40 Est GFR (MDRD) Non-Af 36 (>60) L 03/08/20 04:40 Glucose 305 mg/dL (65-99) H 03/08/20 04:40 POC Glucose (mg/dL) 260 mg/dL (65-99) H 03/08/20 05:33 Calcium 8.3 mg/dL (8.5-10.1) L 03/08/20 04:40 Corrected Calcium 9.6 mg/dL (8.5-10.1) 03/08/20 04:40 Ferritin 1554 ng/mL (26-388) H 03/04/20 14:40 Total Bilirubin 0.30 mg/dL (0.2-1.0) 03/08/20 04:40 AST 35 Units/L (15-37) 03/08/20 04:40 ALT 33 Units/L (12-78) 03/08/20 04:40 Alkaline Phosphatase 54 Units/L (46-116) 03/08/20 04:40 Creatine Kinase 212 Units/L (39-308) 03/05/20 09:40 CK-MB (CK-2) < 1.0 ng/mL (0-4.0) 03/05/20 09:40 CK/CKMB % Calc 0.5 % (<4) 03/05/20 09:40 Troponin I < 0.02 ng/mL (0-1.5) 03/05/20 09:40 C-Reactive Protein 41.10 mg/L (0-3.0) H 03/06/20 04:30 Total Protein 6.4 g/dL (6.4-8.2) 03/08/20 04:40 Albumin 2.4 g/dL (3.4-5.0) L 03/08/20 04:40 Globulin 4.0 g/dL (2.5-4.5) 03/08/20 04:40 Albumin/Globulin Ratio 0.6 Ratio (1.1-2.1) L 03/08/20 04:40 Specimen Type Catherized urine 03/08/20 07:20 Urine Color Yellow (YELLOW) 03/08/20 07:20 Urine Appearance Clear (CLEAR) 03/08/20 07:20 Urine pH 5.0 (5.0 - 8.0) 03/08/20 07:20 Ur Specific [place] 1.015 (1.000-1.030) 03/08/20 07:20 Urine Protein 1+ (NEGATIVE) 03/08/20 07:20 Urine Glucose (UA) 4+ (NEGATIVE) 03/08/20 07:20 Urine Ketones Negative (NEGATIVE) 03/08/20 07:20 Urine Occult Blood 3+ (NEGATIVE) 03/08/20 07:20 Urine Nitrite Negative (NEGATIVE) 03/08/20 07:20 Urine Bilirubin Negative (NEGATIVE) 03/08/20 07:20 Urine Urobilinogen Normal (NORMAL) 03/08/20 07:20 Ur Leukocyte Esterase Negative (NEGATIVE) 03/08/20 07:20 Urine RBC 3-5 /HPF (0-3) A 03/08/20 07:20 Urine WBC None seen /HPF (0-5) 03/08/20 07:20 Ur Squamous Epith Cells Rare /HPF (NEGATIVE) 03/08/20 07:20 Urine Bacteria Negative /HPF (NEGATIVE) 03/08/20 07:20 Ur Culture Indicated? No/not indicated 03/08/20 07:20 Influenza Type A Ag Negative-presumptive (NEGATIVE) 03/04/20 14:29 Influenza Type B Ag Negative-presumptive (NEGATIVE) 03/04/20 14:29 SARS-CoV-2 (PCR) Positive (NEGATIVE) A 03/04/20 14:29 S. pyogenes (TEM-PCR) Not detected (NOT DETECT) 03/04/20 14:29 Plan (1) Acute hypoxemic respiratory failure due to COVID-19: Status: Acute (2) Pneumonia due to 2019 novel coronavirus: Status: Acute (3) Acute renal failure: Status: Acute Qualifiers: Acute renal failure type: unspecified Qualified Code(s): N17.9 - Acute kidney failure, unspecified (4) HTN (hypertension): Status: Acute Qualifiers: Hypertension type: essential hypertension Qualified Code(s): I10 - Essential (primary) hypertension (5) Anxiety: Status: Acute
[2020-03-08] MEDS: VENTOLIN or PROAIR HFA IN SCH ×5 (09:20→21:28)
[2020-03-08] MEDS: PULMICORT NEB TX 0.5 MG NEB SCH ×2 (09:20→21:08)
[2020-03-08] MEDS: ALPHAGAN 0.2% OPHTH SOLN OP SCH (09:26)
[2020-03-08] MEDS: HEPARIN SODIUM INJ 5000 UNITS SC SCH ×2 (09:27→21:43)
[2020-03-08] MEDS: TIMOPTIC 0.5% EYE DROPS OP SCH (09:29)
[2020-03-08] MEDS: ZITHROMAX INJ 500 MG VIAL 500 MG in NS 250 ML IV 250 ML IV SCH (09:29)
[2020-03-08] MEDS: LOTEPREDNOL ETABONATE OP SCH (09:30)
--- NOTE | 2020-03-08 09:56 | RAD ---
HISTORYHYPOXIA, COVID+STUDYCHEST, 1 [id number] view of the chestFINDINGSCardiac silhouette is mildly enlarged. Worsened appearance of bilateral scattered airspace opacities. No pleural effusion or pneumothorax. Soft tissue attenuation limits evaluation.IMPRESSIONWorsened bilateral pneumonia.Electronically signed by: Uriel Lynn (Mar 08, 2020 09:55:51)
[2020-03-08] MEDS: ASPIRIN 81 MG CHEWTAB PO SCH (10:14)
[2020-03-08] MEDS: NORVASC TAB 5 MG PO SCH (10:24)
[2020-03-08] MEDS: PROTONIX TAB 40 MG PO SCH (10:25)
[2020-03-08] MEDS: ZINC SULFATE PO SCH ×2 (10:26→21:41)
[2020-03-08] MEDS: VITAMIN C PO SCH (10:26)
[2020-03-08] MEDS: VITAMIN D3 125 mcg (5,000 UNITS) PO SCH (10:26)
[2020-03-08] MEDS: REMDESIVIR (INVESTIGATIONAL DRUG GS-5734) 100 MG in NS 250 ML IV 250 ML IV SCH (11:30)
[2020-03-08] MEDS ORDERED: LASIX IVP ONE (14:21)
[2020-03-08] MEDS: SNACK - Diabetic Appropriate PO SCH (21:41)
[2020-03-08] MEDS: LIPITOR TAB 20 MG PO SCH (21:42)
[2020-03-08] MEDS: TRICOR TAB 145 MG PO SCH (21:42)
[2020-03-08] MEDS: ILOTYCIN OPHTH OINT OP SCH (21:43)
[2020-03-08] MEDS: FLOMAX PO SCH (21:44)
[2020-03-09] MEDS: TUSSIONEX PENNKINETIC SUSP PO PRN ×2 (02:35→22:06)
[2020-03-09] MEDS: SOLU-Medrol 125 MG VIAL IVP SCH (04:05)
[2020-03-09] MEDS: XANAX PO PRN ×4 (04:30→22:06)
[2020-03-09 05:16] LABS: BASOPHILS % (AUTO) 0.1 % (0.2-1.0); HEMATOCRIT 34.8 % (42.0-54.0); HEMOGLOBIN 11.6 g/dL (13.5-18.0); LYMPHOCYTES # (AUTO) 0.4 X10^3/uL (1.3-2.9); LYMPHOCYTES % (AUTO) 5.8 % (21.0-51.0); MEAN CORPUSCULAR HEMOGLOBIN 29.5 pg (27.0-34.0); MEAN CORPUSCULAR HGB CONC 33.5 g/dL (33.0-35.0); MEAN CORPUSCULAR VOLUME 88.1 fL (80.0-100.0); MONOCYTES # (AUTO) 0.3 x10^3/uL (0.3-0.8); MONOCYTES % (AUTO) 4.3 % (0.0-13.0); NEUTROPHILS # (AUTO) 6.5 x10^3/uL (2.2-4.8); NEUTROPHILS % (AUTO) 89.8 % (42.0-75.0); PLATELET COUNT 196 X10^3/uL (150.0-450.0); RED BLOOD COUNT 3.95 X10^6/uL (4.7-6.0); RED CELL DISTRIBUTION WIDTH 14.1 % (11.6-16.5); WHITE BLOOD COUNT 7.2 X10^3/uL (3.6-10.0)
[2020-03-09 05:31] LABS: CALCIUM 8.1 mg/dL (8.5-10.1); CARBON DIOXIDE 30.6 mmol/L (21-32); CREATININE 1.82 mg/dL (0.70-1.30); MAGNESIUM 2.3 mg/dL (1.7-2.9)
[2020-03-09] MEDS: HumuLIN R SUBCUT PRN ×4 (05:48→22:05)
[2020-03-09] MEDS: ZOSYN VIAL 3.375 GRAMS 3.375 G in NS 100 ML IV + SPIKE MINIBAG* 100 ML IV SCH ×3 (05:50→21:22)
[2020-03-09] MEDS: ASPIRIN 81 MG CHEWTAB PO SCH (08:53)
[2020-03-09] MEDS: HEPARIN SODIUM INJ 5000 UNITS SC SCH ×2 (08:54→21:20)
[2020-03-09] MEDS: LASIX IVP SCH (08:56)
[2020-03-09] MEDS: VITAMIN C PO SCH (08:57)
[2020-03-09] MEDS: NORVASC TAB 5 MG PO SCH (08:57)
[2020-03-09] MEDS: PROTONIX TAB 40 MG PO SCH (08:57)
--- NOTE | 2020-03-09 08:57 | PCM.PROG ---
Progress Note Progress Note for Day of Date of Exam: 03/09/20 Subjective Subjective: Patient seen at bedside, overnight patient was on the BiPAP for a bit and then started pulling at the mask so he was placed on NRB 6L. His sats have been in the mid 80s-low 90s. This morning, he is resting and does not seem to be in distress. He did receive plasma treatment early this AM. He had good UOP with lasix dose. He has been afebrile. Labs: Hgb 11.6 Na: 149 Cl: 108 BUN/Cr: 43/1.82 CRP: 9 ECHO (03/08/20): Grade I diastolic dysfunction, EF 55% CXR: worsening b/l pneumonia Blood Cx: 06/04 first set positive, repeat set pending Plan: repeat CXR and ABG today, continue Zosyn and Azithromax, continue solumedrol and Remdesivir. Will start IV lasix 20 mg daily. Monitor UOP. Switch to hi-flow and keep sats > 90%. Monitor AM labs. Follow blood cultures. Continue duonebs, will add decadron nebs, DC pulmicort. Patient remains in critical condition, time spent reviewing labs/imaging, clinical assessment, documentation and decision making 31-74 mins. Past Medical Family Social History Past Med/Fam/Surg Hx: No changes since H&P Allergies: Allergies morphine Allergy (Verified 03/04/20 14:20) zolpidem [From Ambien] Allergy (Verified 03/04/20 14:20) Review of Systems ROS: No change since H&P Vital Signs and I&O's Vital Signs: Temperature 97.9 F Pulse Rate 89 Respiratory Rate 23 Blood Pressure 127/64 O2 Sat by Pulse Oximetry 88 Intake and Output: Intake & Output 03/06/20 03/07/20 03/08/20 03/09/20 23:59 23:59 23:59 23:59 Intake Total 3862 / 3862 3765 / 3765 2885 / 2885 220 / 220 Output Total 2070 / 2070 1350 / 1350 5300 / 5300 800 / 800 Balance 1792 / 1792 2415 / 2415 -2415 / -2415 -580 / -580 Physical Exam Oriented: Unable to test Eyes: Normal Ear: Normal Nose: Normal Respiratory: Generalized, Diminished and Wheezes Cardiovascular: Normal and Edema (improved ) Auscultation: Bowel Sounds: Normal Tenderness: Normal Skin: Decreased Turgur Musculoskeletal: Normal and Arm (edema improved ) Psychiatric: Normal Mood Description: Calm Speech Pattern: Artificially Ventilated (On BiPAP ) Laboratory and Diagnostics Result Diagrams: 03/09/20 04:30 03/09/20 04:30 Labs: 03/04/20 14:40 Blood Blood Culture - Preliminary 03/04/20 14:45 Blood Blood Culture - Preliminary Laboratory WBC 7.2 X10^3/uL (3.6-10.0) 03/09/20 04:30 RBC 3.95 X10^6/uL (4.7-6.0) L 03/09/20 04:30 Hgb 11.6 g/dL (13.5-18.0) L 03/09/20 04:30 Hct 34.8 % (42.0-54.0) L 03/09/20 04:30 MCV 88.1 fL (80.0-100.0) 03/09/20 04:30 MCH 29.5 pg (27.0-34.0) 03/09/20 04:30 MCHC 33.5 g/dL (33.0-35.0) 03/09/20 04:30 RDW 14.1 % (11.6-16.5) 03/09/20 04:30 Plt Count 196 X10^3/uL (150.0-450.0) 03/09/20 04:30 Plt Count Comment Adequate (ADEQUATE) 03/08/20 04:40 MPV 8.0 fL (7.4-11.0) 03/09/20 04:30 Neut % (Auto) 89.8 % (42.0-75.0) H 03/09/20 04:30 Lymph % (Auto) 5.8 % (21.0-51.0) L 03/09/20 04:30 [place] % (Auto) 4.3 % (0.0-13.0) 03/09/20 04:30 Eos % (Auto) 0.0 % (0.9-2.9) L 03/09/20 04:30 Baso % (Auto) 0.1 % (0.2-1.0) L 03/09/20 04:30 Neut # (Auto) 6.5 x10^3/uL (2.2-4.8) H 03/09/20 04:30 Lymph # (Auto) 0.4 X10^3/uL (1.3-2.9) L 03/09/20 04:30 [place] # (Auto) 0.3 x10^3/uL (0.3-0.8) 03/09/20 04:30 Eos # (Auto) 0.0 x10^3/uL (0.0-0.2) 03/09/20 04:30 Baso # (Auto) 0.0 X10^3/uL (0.0-0.1) 03/09/20 04:30 Absolute Nucleated RBC 0.0 /100WBC 03/09/20 04:30 Total Counted 100 03/08/20 04:40 Neutrophils % (Manual) 92 % (39-76) H 03/08/20 04:40 Lymphocytes % (Manual) 8 % (13-43) L 03/08/20 04:40 Monocytes % (Manual) 1 % (4-9) L 03/07/20 04:15 Plt Morphology Comment Normal (NORMAL) 03/08/20 04:40 RBC Morphology Normal (NORMAL) 03/08/20 04:40 D-Dimer 0.46 ug/ml (0.0-0.57) 03/04/20 14:40 Sample Site Lrad 03/08/20 08:03 ABG pH 7.370 (7.35-7.45) 03/08/20 08:03 ABG pCO2 46.0 mmHg (35.0-45.0) H 03/08/20 08:03 ABG pO2 75.0 mmHg (80.0-100.0) L 03/08/20 08:03 ABG HCO3 26.6 mmol/L (22-26) H 03/08/20 08:03 ABG O2 Saturation 94.0 % (90-100) 03/08/20 08:03 ABG Base Excess 0.9 mmol/L (-2.0-2.0) 03/08/20 08:03 Capo Test Pos 03/08/20 08:03 A-a Gradient 224.0 mmHg 03/08/20 08:03 FiO2 50.0 03/08/20 08:03 Blood Gas Comments Pt melinda well elj cdn 03/08/20 08:03 Sodium 145 mmol/L (136-145) 03/09/20 04:30 Corrected Sodium 149 mmol/L (136-145) H 03/09/20 04:30 Potassium 3.9 mmol/L (3.5-5.1) 03/09/20 04:30 Chloride 108 mmol/L (98-107) H 03/09/20 04:30 Carbon Dioxide 30.6 mmol/L (21-32) 03/09/20 04:30 BUN 43 mg/dL (7-18) H 03/09/20 04:30 Creatinine 1.82 mg/dL (0.70-1.30) H 03/09/20 04:30 Est GFR (MDRD) Af Amer 46 (>60) L 03/09/20 04:30 Est GFR (MDRD) Non-Af 38 (>60) L 03/09/20 04:30 Glucose 247 mg/dL (65-99) H 03/09/20 04:30 POC Glucose (mg/dL) 194 mg/dL (65-99) H 03/08/20 21:53 Calcium 8.1 mg/dL (8.5-10.1) L 03/09/20 04:30 Corrected Calcium 9.6 mg/dL (8.5-10.1) 03/08/20 04:40 Magnesium 2.3 mg/dL (1.7-2.9) 03/09/20 04:30 Ferritin 1554 ng/mL (26-388) H 03/04/20 14:40 Total Bilirubin 0.30 mg/dL (0.2-1.0) 03/08/20 04:40 AST 35 Units/L (15-37) 03/08/20 04:40 ALT 33 Units/L (12-78) 03/08/20 04:40 Alkaline Phosphatase 54 Units/L (46-116) 03/08/20 04:40 Creatine Kinase 212 Units/L (39-308) 03/05/20 09:40 CK-MB (CK-2) < 1.0 ng/mL (0-4.0) 03/05/20 09:40 CK/CKMB % Calc 0.5 % (<4) 10/03/20 09:40 Troponin I < 0.02 ng/mL (0-1.5) 03/05/20 09:40 C-Reactive Protein 9.00 mg/L (0-3.0) H 03/09/20 04:30 Total Protein 6.4 g/dL (6.4-8.2) 03/08/20 04:40 Albumin 2.4 g/dL (3.4-5.0) L 03/08/20 04:40 Globulin 4.0 g/dL (2.5-4.5) 03/08/20 04:40 Albumin/Globulin Ratio 0.6 Ratio (1.1-2.1) L 03/08/20 04:40 Specimen Type Catherized urine 03/08/20 07:20 Urine Color Yellow (YELLOW) 03/08/20 07:20 Urine Appearance Clear (CLEAR) 03/08/20 07:20 Urine pH 5.0 (5.0 - 8.0) 03/08/20 07:20 Ur Specific [place] 1.015 (1.000-1.030) 03/08/20 07:20 Urine Protein 1+ (NEGATIVE) 03/08/20 07:20 Urine Glucose (UA) 4+ (NEGATIVE) 03/08/20 07:20 Urine Ketones Negative (NEGATIVE) 03/08/20 07:20 Urine Occult Blood 3+ (NEGATIVE) 03/08/20 07:20 Urine Nitrite Negative (NEGATIVE) 03/08/20 07:20 Urine Bilirubin Negative (NEGATIVE) 03/08/20 07:20 Urine Urobilinogen Normal (NORMAL) 03/08/20 07:20 Ur Leukocyte Esterase Negative (NEGATIVE) 03/08/20 07:20 Urine RBC 3-5 /HPF (0-3) A 03/08/20 07:20 Urine WBC None seen /HPF (0-5) 03/08/20 07:20 Ur Squamous Epith Cells Rare /HPF (NEGATIVE) 03/08/20 07:20 Urine Bacteria Negative /HPF (NEGATIVE) 03/08/20 07:20 Ur Culture Indicated? No/not indicated 03/08/20 07:20 Influenza Type A Ag Negative-presumptive (NEGATIVE) 03/04/20 14:29 Influenza Type B Ag Negative-presumptive (NEGATIVE) 03/04/20 14:29 SARS-CoV-2 (PCR) Positive (NEGATIVE) A 03/04/20 14:29 S. pyogenes (TEM-PCR) Not detected (NOT DETECT) 03/04/20 14:29 Blood Type O POSITIVE 03/08/20 09:05 Plan (1) Acute hypoxemic respiratory failure due to COVID-19: Status: Acute (2) Pneumonia due to 2019 novel coronavirus: Status: Acute (3) Acute renal failure: Status: Acute Qualifiers: Acute renal failure type: unspecified Qualified Code(s): N17.9 - Acute kidney failure, unspecified (4) HTN (hypertension): Status: Acute Qualifiers: Hypertension type: essential hypertension Qualified Code(s): I10 - Essential (primary) hypertension (5) Anxiety: Status: Acute
[2020-03-09] MEDS: ZINC SULFATE PO SCH ×2 (08:58→21:22)
[2020-03-09] MEDS: ZITHROMAX INJ 500 MG VIAL 500 MG in NS 250 ML IV 250 ML IV SCH (08:58)
[2020-03-09] MEDS: VITAMIN D3 125 mcg (5,000 UNITS) PO SCH (08:59)
[2020-03-09] MEDS: LOTEPREDNOL ETABONATE OP SCH (08:59)
[2020-03-09] MEDS: ALPHAGAN 0.2% OPHTH SOLN OP SCH (08:59)
[2020-03-09] MEDS: TIMOPTIC 0.5% EYE DROPS OP SCH (09:00)
[2020-03-09] MEDS ORDERED: DECADRON JET NEB (RESP USE) NEB ONE (09:13)
[2020-03-09] MEDS: DECADRON JET NEB (RESP USE) NEB SCH ×2 (09:20→21:35)
[2020-03-09] MEDS: VENTOLIN or PROAIR HFA IN SCH ×4 (09:20→21:35)
[2020-03-09 10:13] LABS: ABG ALLEN TEST POS; ABG HCO3 32.5 mmol/L (22-26)
--- NOTE | 2020-03-09 11:27 | RAD ---
Chest AP portableIndication: Hypoxia. COVID-19 phos patientFINDINGSThere is no pneumothorax. Heart size is prominent. Monitor leads obscure minimal detail. Patchy peripheral opacities are similar to the prior, without worsening convincingly demonstrated.IMPRESSIONPersistent patchy bilateral pulmonary opacities without convincing new acute abnormality.Electronically signed by: JUAN ANTONIO KELSEY (Mar 09, 2020 11:27:12)
[2020-03-09] MEDS: DUONEB 0.5 MG/3 MG (3 mL) NEB SCH ×2 (12:10→21:35)
[2020-03-09] MEDS: SOLU-Medrol 40 MG VIAL IVP SCH ×3 (12:18→22:04)
[2020-03-09] MEDS: REMDESIVIR (INVESTIGATIONAL DRUG GS-5734) 100 MG in NS 250 ML IV 250 ML IV SCH (12:30)
[2020-03-09] MEDS ORDERED: PULMICORT NEB TX 0.5 MG NEB ONE (20:18)
[2020-03-09] MEDS: FLOMAX PO SCH (21:19)
[2020-03-09] MEDS: ILOTYCIN OPHTH OINT OP SCH (21:21)
[2020-03-09] MEDS: TRICOR TAB 145 MG PO SCH (21:21)
[2020-03-09] MEDS: LIPITOR TAB 20 MG PO SCH (21:21)
[2020-03-09] MEDS: SNACK - Diabetic Appropriate PO SCH (21:23)
[2020-03-10] MEDS: SOLU-Medrol 40 MG VIAL IVP SCH ×4 (05:00→21:00)
[2020-03-10 05:06] LABS: BASOPHILS % (AUTO) 0 % (0.2-1.0); HEMATOCRIT 36.5 % (42.0-54.0); HEMOGLOBIN 12.1 g/dL (13.5-18.0); LYMPHOCYTES # (AUTO) 0.4 X10^3/uL (1.3-2.9); LYMPHOCYTES % (AUTO) 5.5 % (21.0-51.0); MEAN CORPUSCULAR HEMOGLOBIN 29.3 pg (27.0-34.0); MEAN CORPUSCULAR HGB CONC 33.1 g/dL (33.0-35.0); MEAN CORPUSCULAR VOLUME 88.4 fL (80.0-100.0); MEAN PLATELET VOLUME 8.4 fL (7.4-11.0); MONOCYTES # (AUTO) 0.4 x10^3/uL (0.3-0.8); MONOCYTES % (AUTO) 4.6 % (0.0-13.0); NEUTROPHILS # (AUTO) 6.8 x10^3/uL (2.2-4.8); NEUTROPHILS % (AUTO) 89.9 % (42.0-75.0); PLATELET COUNT 217 X10^3/uL (150.0-450.0); RED BLOOD COUNT 4.13 X10^6/uL (4.7-6.0); RED CELL DISTRIBUTION WIDTH 13.9 % (11.6-16.5); WHITE BLOOD COUNT 7.6 X10^3/uL (3.6-10.0)
[2020-03-10 05:13] LABS: CALCIUM 8.3 mg/dL (8.5-10.1); CARBON DIOXIDE 31.9 mmol/L (21-32); CREATININE 1.76 mg/dL (0.70-1.30)
[2020-03-10] MEDS: DUONEB 0.5 MG/3 MG (3 mL) NEB SCH ×3 (06:46→21:45)
[2020-03-10] MEDS: ZOSYN VIAL 3.375 GRAMS 3.375 G in NS 100 ML IV + SPIKE MINIBAG* 100 ML IV SCH ×3 (06:59→21:00)
[2020-03-10] MEDS: HumuLIN R SUBCUT PRN ×4 (07:01→21:52)
[2020-03-10] MEDS: XANAX PO PRN ×3 (08:10→21:00)
[2020-03-10] MEDS: VENTOLIN or PROAIR HFA IN SCH ×5 (09:15→21:45)
[2020-03-10] MEDS: DECADRON JET NEB (RESP USE) NEB SCH ×2 (09:15→21:45)
[2020-03-10] MEDS: HEPARIN SODIUM INJ 5000 UNITS SC SCH ×2 (09:18→21:00)
[2020-03-10] MEDS: ASPIRIN 81 MG CHEWTAB PO SCH (09:18)
[2020-03-10] MEDS: ALPHAGAN 0.2% OPHTH SOLN OP SCH (09:18)
[2020-03-10] MEDS: NORVASC TAB 5 MG PO SCH (09:21)
[2020-03-10] MEDS: LASIX IVP SCH (09:21)
[2020-03-10] MEDS: LOTEPREDNOL ETABONATE OP SCH (09:21)
[2020-03-10] MEDS: D5W 1000 ML IV 1,000 ML IV SCH ×2 (09:22→21:52)
[2020-03-10] MEDS: PROTONIX TAB 40 MG PO SCH (09:22)
[2020-03-10] MEDS: VITAMIN D3 125 mcg (5,000 UNITS) PO SCH (09:25)
[2020-03-10] MEDS: VITAMIN C PO SCH (09:25)
[2020-03-10] MEDS: TIMOPTIC 0.5% EYE DROPS OP SCH (09:25)
[2020-03-10] MEDS: ZINC SULFATE PO SCH ×2 (09:26→21:00)
[2020-03-10 09:29] LABS: ABG BASE EXCESS 11.8 mmol/L (-2.0-2.0)
[2020-03-10 09:30] LABS: ABG HCO3 39.6 mmol/L (22-26)
[2020-03-10] MEDS: REMDESIVIR (INVESTIGATIONAL DRUG GS-5734) 100 MG in NS 250 ML IV 250 ML IV SCH (09:35)
[2020-03-10] MEDS: ZITHROMAX INJ 500 MG VIAL 500 MG in NS 250 ML IV 250 ML IV SCH (09:36)
--- NOTE | 2020-03-10 10:26 | PCM.PROG ---
Progress Note Progress Note for Day of Date of Exam: 03/10/20 Subjective Subjective: Patient seen at bedside, overnight patient was agitated and trying to get out of bed. He was pulling his koroma and all the leads so soft restraints were placed on his wrists. He has had intermittent confusion and is able to be reoriented. He has remained on hi-flow with sats 88-90%. Patient is awake, alert to place and self. He states he is doing ok and does not appear to be in distress. Labs: Hgb 12.1 Na: 150 Cl: 109 BUN/Cr: 49/1.82 ECHO (03/08/20): Grade I diastolic dysfunction, EF 55% CXR: b/l opacities, no change from day Blood Cx: 06/04 first set positive for Gram Positive cocci, repeat sets pending ABG this AM: shows worsening CO2 at 67 Plan: will ask RT to place patient back on BiPAP and repeat ABG in 4 hrs, repeat CXR. Continue IV abx, remdesivir and steroids. Continue duonebs and decadron nebs. Start D5 @ 50cc/hr for hypernatremia, will repeat BMP this afternoon. Monitor UOP, AM labs and cultures. Take off restraints as tolerated. Patient remains in critical condition, time spent reviewing labs/imaging, clinical assessment, documentation and decision making 31-74 mins. Past Medical Family Social History Past Med/Fam/Surg Hx: No changes since H&P Allergies: Allergies morphine Allergy (Verified 03/04/20 14:20) zolpidem [From Ambien] Allergy (Verified 03/04/20 14:20) Review of Systems ROS: No change since H&P Vital Signs and I&O's Vital Signs: Temperature 98 F Pulse Rate 86 Respiratory Rate 17 Blood Pressure 154/68 O2 Sat by Pulse Oximetry 89 Intake and Output: Intake & Output 03/07/20 03/08/20 03/09/20 03/10/20 23:59 23:59 23:59 23:59 Intake Total 3765 / 3765 2885 / 2885 2722 / 2722 100 / 100 Output Total 1350 / 1350 5300 / 5300 3500 / 3500 900 / 900 Balance 2415 / 2415 -2415 / -2415 -778 / -778 -800 / -800 Physical Exam Oriented: Person and Place Eyes: Normal Ear: Normal Nose: Normal Respiratory: Generalized, Diminished, Wheezes and Rales Cardiovascular: Normal and Edema (improved ) Auscultation: Bowel Sounds: Normal Tenderness: Normal Skin: Decreased Turgur Musculoskeletal: Normal and Arm (edema improved ) Psychiatric: Normal Mood Description: Calm Affect: Anxious Speech Pattern: Clear Laboratory and Diagnostics Result Diagrams: 03/10/20 04:15 03/10/20 13:18 Labs: 03/04/20 14:45 Blood Blood Culture - Final 03/04/20 14:40 Blood Blood Culture - Preliminary Laboratory WBC 7.6 X10^3/uL (3.6-10.0) 03/10/20 04:15 RBC 4.13 X10^6/uL (4.7-6.0) L 03/10/20 04:15 Hgb 12.1 g/dL (13.5-18.0) L 03/10/20 04:15 Hct 36.5 % (42.0-54.0) L 03/10/20 04:15 MCV 88.4 fL (80.0-100.0) 03/10/20 04:15 MCH 29.3 pg (27.0-34.0) 03/10/20 04:15 MCHC 33.1 g/dL (33.0-35.0) 03/10/20 04:15 RDW 13.9 % (11.6-16.5) 03/10/20 04:15 Plt Count 217 X10^3/uL (150.0-450.0) 03/10/20 04:15 Plt Count Comment Adequate (ADEQUATE) 03/08/20 04:40 MPV 8.4 fL (7.4-11.0) 03/10/20 04:15 Neut % (Auto) 89.9 % (42.0-75.0) H 03/10/20 04:15 Lymph % (Auto) 5.5 % (21.0-51.0) L 03/10/20 04:15 [place] % (Auto) 4.6 % (0.0-13.0) 03/10/20 04:15 Eos % (Auto) 0.0 % (0.9-2.9) L 03/10/20 04:15 Baso % (Auto) 0 % (0.2-1.0) L 03/10/20 04:15 Neut # (Auto) 6.8 x10^3/uL (2.2-4.8) H 03/10/20 04:15 Lymph # (Auto) 0.4 X10^3/uL (1.3-2.9) L 03/10/20 04:15 [place] # (Auto) 0.4 x10^3/uL (0.3-0.8) 03/10/20 04:15 Eos # (Auto) 0.0 x10^3/uL (0.0-0.2) 03/10/20 04:15 Baso # (Auto) 0.0 X10^3/uL (0.0-0.1) 03/10/20 04:15 Absolute Nucleated RBC 0.2 /100WBC 03/10/20 04:15 Total Counted 100 03/08/20 04:40 Neutrophils % (Manual) 92 % (39-76) H 03/08/20 04:40 Lymphocytes % (Manual) 8 % (13-43) L 03/08/20 04:40 Monocytes % (Manual) 1 % (4-9) L 03/07/20 04:15 Plt Morphology Comment Normal (NORMAL) 03/08/20 04:40 RBC Morphology Normal (NORMAL) 03/08/20 04:40 D-Dimer 0.46 ug/ml (0.0-0.57) 03/04/20 14:40 Sample Site Rt bra 03/10/20 09:24 ABG pH 7.380 (7.35-7.45) 03/10/20 09:24 ABG pCO2 67.0 mmHg (35.0-45.0) H* 03/10/20 09:24 ABG pO2 95.0 mmHg (80.0-100.0) 03/10/20 09:24 ABG HCO3 39.6 mmol/L (22-26) H* 03/10/20 09:24 ABG O2 Saturation 97.0 % (90-100) 03/10/20 09:24 ABG Base Excess 11.8 mmol/L (-2.0-2.0) H 03/10/20 09:24 Capo Test Na 03/10/20 09:24 A-a Gradient 434.0 mmHg 03/10/20 09:24 FiO2 86.0 03/10/20 09:24 Blood Gas Comments Tyler well aw/gmb 03/10/20 09:24 Sodium 147 mmol/L (136-145) H 03/10/20 04:15 Corrected Sodium 150 mmol/L (136-145) H 03/10/20 04:15 Potassium 3.8 mmol/L (3.5-5.1) 03/10/20 04:15 Chloride 108 mmol/L (98-107) H 03/10/20 04:15 Carbon Dioxide 31.9 mmol/L (21-32) 03/10/20 04:15 BUN 47 mg/dL (7-18) H 03/10/20 04:15 Creatinine 1.76 mg/dL (0.70-1.30) H 03/10/20 04:15 Est GFR (MDRD) Af Amer 48 (>60) L 03/10/20 04:15 Est GFR (MDRD) Non-Af 40 (>60) L 03/10/20 04:15 Glucose 240 mg/dL (65-99) H 03/10/20 04:15 POC Glucose (mg/dL) 270 mg/dL (65-99) H 03/09/20 21:51 Calcium 8.3 mg/dL (8.5-10.1) L 03/10/20 04:15 Corrected Calcium 9.6 mg/dL (8.5-10.1) 03/08/20 04:40 Magnesium 2.3 mg/dL (1.7-2.9) 03/09/20 04:30 Ferritin 1554 ng/mL (26-388) H 03/04/20 14:40 Total Bilirubin 0.30 mg/dL (0.2-1.0) 03/08/20 04:40 AST 35 Units/L (15-37) 03/08/20 04:40 ALT 33 Units/L (12-78) 03/08/20 04:40 Alkaline Phosphatase 54 Units/L (46-116) 03/08/20 04:40 Creatine Kinase 212 Units/L (39-308) 03/05/20 09:40 CK-MB (CK-2) < 1.0 ng/mL (0-4.0) 03/05/20 09:40 CK/CKMB % Calc 0.5 % (<4) 03/05/20 09:40 Troponin I < 0.02 ng/mL (0-1.5) 03/05/20 09:40 C-Reactive Protein 9.00 mg/L (0-3.0) H 03/09/20 04:30 Total Protein 6.4 g/dL (6.4-8.2) 03/08/20 04:40 Albumin 2.4 g/dL (3.4-5.0) L 03/08/20 04:40 Globulin 4.0 g/dL (2.5-4.5) 03/08/20 04:40 Albumin/Globulin Ratio 0.6 Ratio (1.1-2.1) L 03/08/20 04:40 Specimen Type Catherized urine 03/08/20 07:20 Urine Color Yellow (YELLOW) 03/08/20 07:20 Urine Appearance Clear (CLEAR) 03/08/20 07:20 Urine pH 5.0 (5.0 - 8.0) 03/08/20 07:20 Ur Specific [place] 1.015 (1.000-1.030) 03/08/20 07:20 Urine Protein 1+ (NEGATIVE) 03/08/20 07:20 Urine Glucose (UA) 4+ (NEGATIVE) 03/08/20 07:20 Urine Ketones Negative (NEGATIVE) 03/08/20 07:20 Urine Occult Blood 3+ (NEGATIVE) 03/08/20 07:20 Urine Nitrite Negative (NEGATIVE) 03/08/20 07:20 Urine Bilirubin Negative (NEGATIVE) 03/08/20 07:20 Urine Urobilinogen Normal (NORMAL) 03/08/20 07:20 Ur Leukocyte Esterase Negative (NEGATIVE) 03/08/20 07:20 Urine RBC 3-5 /HPF (0-3) A 03/08/20 07:20 Urine WBC None seen /HPF (0-5) 03/08/20 07:20 Ur Squamous Epith Cells Rare /HPF (NEGATIVE) 03/08/20 07:20 Urine Bacteria Negative /HPF (NEGATIVE) 03/08/20 07:20 Ur Culture Indicated? No/not indicated 03/08/20 07:20 Influenza Type A Ag Negative-presumptive (NEGATIVE) 03/04/20 14:29 Influenza Type B Ag Negative-presumptive (NEGATIVE) 03/04/20 14:29 SARS-CoV-2 (PCR) Positive (NEGATIVE) A 03/04/20 14:29 S. pyogenes (TEM-PCR) Not detected (NOT DETECT) 03/04/20 14:29 Blood Type O POSITIVE 03/08/20 09:05 Plan (1) Acute respiratory failure with hypoxia and hypercapnia: Status: Acute (2) Delirium: Status: Acute (3) Agitation: Status: Acute (4) Acute hypoxemic respiratory failure due to COVID-19: Status: Acute (5) Pneumonia due to 2019 novel coronavirus: Status: Acute (6) Acute renal failure: Status: Acute Qualifiers: Acute renal failure type: unspecified Qualified Code(s): N17.9 - Acute kidney failure, unspecified (7) Hypernatremia: Status: Acute (8) HTN (hypertension): Status: Acute Qualifiers: Hypertension type: essential hypertension Qualified Code(s): I10 - E ssential (primary) hypertension (9) Anxiety: Status: Acute
[2020-03-10 13:39] LABS: CALCIUM 8.5 mg/dL (8.5-10.1); CARBON DIOXIDE 37.5 mmol/L (21-32); CREATININE 1.82 mg/dL (0.70-1.30)
[2020-03-10 14:02] LABS: ABG BASE EXCESS 12.7 mmol/L (-2.0-2.0)
[2020-03-10 14:03] LABS: ABG HCO3 38.9 mmol/L (22-26)
--- NOTE | 2020-03-10 15:12 | RAD ---
HISTORYHYPOXIA, COVID+STUDYCHEST, 1 [id number] areas of opacity in the left and right lung are compatible with bronchopneumonia. The findings have progressed since yesterday.No pleural effusion or pneumothorax.The heart size is magnified. Mediastinum probably normal when accounting for supine technique.Bones are unremarkable.EKG leads are noted.IMPRESSION1. Progressed bronchopneumoniaElectronically signed by: Uriel Albarado (Mar 10, 2020 15:12:12)
[2020-03-10] MEDS: SNACK - Diabetic Appropriate PO SCH (20:00)
[2020-03-10] MEDS: LIPITOR TAB 20 MG PO SCH (21:00)
[2020-03-10] MEDS: FLOMAX PO SCH (21:00)
[2020-03-10] MEDS: ILOTYCIN OPHTH OINT OP SCH (21:00)
[2020-03-10] MEDS: TRICOR TAB 145 MG PO SCH (21:00)
[2020-03-10] MEDS ORDERED: HALDOL INJ IM ONE (21:53)
[2020-03-10] MEDS ORDERED: HALDOL INJ ONE (21:55)
[2020-03-11] MEDS: SOLU-Medrol 40 MG VIAL IVP SCH ×4 (05:00→21:30)
[2020-03-11 05:11] LABS: BASOPHILS % (AUTO) 0.2 % (0.2-1.0); EOSINOPHILS % (AUTO) 0.4 % (0.9-2.9); HEMATOCRIT 36.3 % (42.0-54.0); HEMOGLOBIN 12.2 g/dL (13.5-18.0); LYMPHOCYTES # (AUTO) 0.4 X10^3/uL (1.3-2.9); LYMPHOCYTES % (AUTO) 5.2 % (21.0-51.0); MEAN CORPUSCULAR HEMOGLOBIN 29.4 pg (27.0-34.0); MEAN CORPUSCULAR HGB CONC 33.6 g/dL (33.0-35.0); MEAN CORPUSCULAR VOLUME 87.6 fL (80.0-100.0); MEAN PLATELET VOLUME 8.2 fL (7.4-11.0); MONOCYTES # (AUTO) 0.4 x10^3/uL (0.3-0.8); MONOCYTES % (AUTO) 5.8 % (0.0-13.0); NEUTROPHILS # (AUTO) 6.6 x10^3/uL (2.2-4.8); NEUTROPHILS % (AUTO) 88.4 % (42.0-75.0); PLATELET COUNT 244 X10^3/uL (150.0-450.0); RED BLOOD COUNT 4.15 X10^6/uL (4.7-6.0); RED CELL DISTRIBUTION WIDTH 14.1 % (11.6-16.5); WHITE BLOOD COUNT 7.5 X10^3/uL (3.6-10.0)
[2020-03-11 05:18] LABS: CALCIUM 8.6 mg/dL (8.5-10.1); CARBON DIOXIDE 36.2 mmol/L (21-32); CREATININE 1.74 mg/dL (0.70-1.30)
[2020-03-11] MEDS: DUONEB 0.5 MG/3 MG (3 mL) NEB SCH ×4 (05:50→21:44)
[2020-03-11] MEDS: HumuLIN R SUBCUT PRN ×4 (06:29→20:40)
[2020-03-11] MEDS: ZOSYN VIAL 3.375 GRAMS 3.375 G in NS 100 ML IV + SPIKE MINIBAG* 100 ML IV SCH ×3 (06:29→21:30)
[2020-03-11] MEDS: XANAX PO PRN ×3 (06:30→22:15)
[2020-03-11 08:28] LABS: ABG BASE EXCESS 15.8 mmol/L (-2.0-2.0)
[2020-03-11 08:29] LABS: ABG HCO3 43.1 mmol/L (22-26)
[2020-03-11] MEDS ORDERED: ZITHROMAX INJ 500 MG VIAL 250 MG in NS 250 ML IV 250 ML IV SCH (09:00)
[2020-03-11] MEDS: DECADRON JET NEB (RESP USE) NEB SCH ×2 (09:15→21:45)
[2020-03-11] MEDS: REMDESIVIR (INVESTIGATIONAL DRUG GS-5734) 100 MG in NS 250 ML IV 250 ML IV SCH (09:33)
[2020-03-11] MEDS: HEPARIN SODIUM INJ 5000 UNITS SC SCH ×2 (09:33→20:40)
[2020-03-11] MEDS: D5W 1000 ML IV 1,000 ML IV SCH ×2 (09:34→21:59)
[2020-03-11] MEDS: LASIX IVP SCH (09:34)
--- NOTE | 2020-03-11 10:40 | PCM.PROG ---
Progress Note Progress Note for Day of Date of Exam: 03/11/20 Subjective Subjective: Patient seen at bedside, overnight patient remained very agitated and trying to pull on his oxygen along with koroma and telemetry leads. Yesterday afternoon, he was placed on the BiPAP and patient broke the mask. He has had intermittent confusion and delirium. He was given Haldol IM 2 mg once. Patient finally went to sleep early this AM. He is currently resting on HHFNC. He has been afebrile. Labs: Hgb 12.2 Na: 152 Cl: 109 BUN/Cr: 47/1.74 ECHO (03/08/20): Grade I diastolic dysfunction, EF 55% CXR yesterday: worsening bronchopneumonia Blood Cx: 06/04 first set positive for CONS, repeat sets negative. ABG this AM: pO2: 70 pCO2: 65 on 78% HHFNC Plan: will attempt to place patient back on BiPAP while he is resting. He is currently on soft wrist restraints. Continue IV Zosyn, will DC Zithromax (completed course), continue remdesivir and steroids. Continue duonebs and decadron nebs. Continue @ 50cc/hr for hypernatremia, Na slowly trending down. Monitor UOP, AM labs and cultures. Take off restraints as tolerated. Patient remains in critical condition, time spent reviewing labs/imaging, clinical assessment, documentation and decision making 31-74 mins. Past Medical Family Social History Past Med/Fam/Surg Hx: No changes since H&P Allergies: Allergies morphine Allergy (Verified 03/04/20 14:20) zolpidem [From Ambien] Allergy (Verified 03/04/20 14:20) Review of Systems ROS: No change since H&P Vital Signs and I&O's Vital Signs: Temperature 98.9 F Pulse Rate 73 Respiratory Rate 19 Blood Pressure 121/59 O2 Sat by Pulse Oximetry 96 Intake and Output: Intake & Output 03/08/20 03/09/20 03/10/20 03/11/20 23:59 23:59 23:59 23:59 Intake Total 2885 / 2885 2722 / 2722 1557 / 1557 614 / 614 Output Total 5300 / 5300 3500 / 3500 3425 / 3425 800 / 800 Balance -2415 / -2415 -778 / -778 -1868 / -1868 -186 / -186 Physical Exam Oriented: Unable to test Eyes: Normal Ear: Normal Nose: Normal Respiratory: Generalized and Diminished Cardiovascular: Normal and Edema (improved ) Auscultation: Bowel Sounds: Normal Tenderness: Normal Skin: Decreased Turgur Musculoskeletal: Normal and Arm (edema improved ) Psychiatric: Normal Mood Description: Calm Affect: Normal Laboratory and Diagnostics Result Diagrams: 03/11/20 04:50 03/11/20 04:50 Labs: 03/04/20 14:40 Blood Blood Culture - Final Staphylococcus Hominis 03/08/20 14:45 Blood Blood Culture - Preliminary 03/08/20 14:35 Blood Blood Culture - Preliminary 03/04/20 14:45 Blood Blood Culture - Final Laboratory WBC 7.5 X10^3/uL (3.6-10.0) 03/11/20 04:50 RBC 4.15 X10^6/uL (4.7-6.0) L 03/11/20 04:50 Hgb 12.2 g/dL (13.5-18.0) L 03/11/20 04:50 Hct 36.3 % (42.0-54.0) L 03/11/20 04:50 MCV 87.6 fL (80.0-100.0) 03/11/20 04:50 MCH 29.4 pg (27.0-34.0) 03/11/20 04:50 MCHC 33.6 g/dL (33.0-35.0) 03/11/20 04:50 RDW 14.1 % (11.6-16.5) 03/11/20 04:50 Plt Count 244 X10^3/uL (150.0-450.0) 03/11/20 04:50 Plt Count Comment Adequate (ADEQUATE) 03/08/20 04:40 MPV 8.2 fL (7.4-11.0) 03/11/20 04:50 Neut % (Auto) 88.4 % (42.0-75.0) H 03/11/20 04:50 Lymph % (Auto) 5.2 % (21.0-51.0) L 03/11/20 04:50 [place] % (Auto) 5.8 % (0.0-13.0) 03/11/20 04:50 Eos % (Auto) 0.4 % (0.9-2.9) L 03/11/20 04:50 Baso % (Auto) 0.2 % (0.2-1.0) 03/11/20 04:50 Neut # (Auto) 6.6 x10^3/uL (2.2-4.8) H 03/11/20 04:50 Lymph # (Auto) 0.4 X10^3/uL (1.3-2.9) L 03/11/20 04:50 [place] # (Auto) 0.4 x10^3/uL (0.3-0.8) 03/11/20 04:50 Eos # (Auto) 0.0 x10^3/uL (0.0-0.2) 03/11/20 04:50 Baso # (Auto) 0.0 X10^3/uL (0.0-0.1) 03/11/20 04:50 Absolute Nucleated RBC 0.2 /100WBC 03/11/20 04:50 Total Counted 100 03/08/20 04:40 Neutrophils % (Manual) 92 % (39-76) H 03/08/20 04:40 Lymphocytes % (Manual) 8 % (13-43) L 03/08/20 04:40 Monocytes % (Manual) 1 % (4-9) L 03/07/20 04:15 Plt Morphology Comment Normal (NORMAL) 03/08/20 04:40 RBC Morphology Normal (NORMAL) 03/08/20 04:40 D-Dimer 0.46 ug/ml (0.0-0.57) 03/04/20 14:40 Sample Site Right brachial 03/11/20 08:20 ABG pH 7.430 (7.35-7.45) 03/11/20 08:20 ABG pCO2 65.0 mmHg (35.0-45.0) H* 03/11/20 08:20 ABG pO2 70.0 mmHg (80.0-100.0) L 03/11/20 08:20 ABG HCO3 43.1 mmol/L (22-26) H* 03/11/20 08:20 ABG O2 Saturation 94.0 % (90-100) 03/11/20 08:20 ABG Base Excess 15.8 mmol/L (-2.0-2.0) H 03/11/20 08:20 Capo Test Na 03/11/20 08:20 A-a Gradient 412.0 mmHg 03/11/20 08:20 FiO2 79.0 03/11/20 08:20 Blood Gas Comments Tyler well aw 03/11/20 08:20 Sodium 149 mmol/L (136-145) H 03/11/20 04:50 Corrected Sodium 152 mmol/L (136-145) H 03/11/20 04:50 Potassium 3.6 mmol/L (3.5-5.1) 03/11/20 04:50 Chloride 109 mmol/L (98-107) H 03/11/20 04:50 Carbon Dioxide 36.2 mmol/L (21-32) H 03/11/20 04:50 BUN 47 mg/dL (7-18) H 03/11/20 04:50 Creatinine 1.74 mg/dL (0.70-1.30) H 03/11/20 04:50 Est GFR (MDRD) Af Amer 49 (>60) L 03/11/20 04:50 Est GFR (MDRD) Non-Af 40 (>60) L 03/11/20 04:50 Glucose 219 mg/dL (65-99) H 03/11/20 04:50 POC Glucose (mg/dL) 190 mg/dL (65-99) H 03/11/20 05:01 Calcium 8.6 mg/dL (8.5-10.1) 03/11/20 04:50 Corrected Calcium 9.6 mg/dL (8.5-10.1) 03/08/20 04:40 Magnesium 2.3 mg/dL (1.7-2.9) 03/09/20 04:30 Ferritin 1554 ng/mL (26-388) H 03/04/20 14:40 Total Bilirubin 0.30 mg/dL (0.2-1.0) 03/08/20 04:40 AST 35 Units/L (15-37) 03/08/20 04:40 ALT 33 Units/L (12-78) 03/08/20 04:40 Alkaline Phosphatase 54 Units/L (46-116) 03/08/20 04:40 Creatine Kinase 212 Units/L (39-308) 03/05/20 09:40 CK-MB (CK-2) < 1.0 ng/mL (0-4.0) 03/05/20 09:40 CK/CKMB % Calc 0.5 % (<4) 03/05/20 09:40 Troponin I < 0.02 ng/mL (0-1.5) 03/05/20 09:40 C-Reactive Protein 9.00 mg/L (0-3.0) H 03/09/20 04:30 Total Protein 6.4 g/dL (6.4-8.2) 03/08/20 04:40 Albumin 2.4 g/dL (3.4-5.0) L 03/08/20 04:40 Globulin 4.0 g/dL (2.5-4.5) 03/08/20 04:40 Albumin/Globulin Ratio 0.6 Ratio (1.1-2.1) L 03/08/20 04:40 Specimen Type Catherized urine 03/08/20 07:20 Urine Color Yellow (YELLOW) 03/08/20 07:20 Urine Appearance Clear (CLEAR) 03/08/20 07:20 Urine pH 5.0 (5.0 - 8.0) 03/08/20 07:20 Ur Specific [place] 1.015 (1.000-1.030) 03/08/20 07:20 Urine Protein 1+ (NEGATIVE) 03/08/20 07:20 Urine Glucose (UA) 4+ (NEGATIVE) 03/08/20 07:20 Urine Ketones Negative (NEGATIVE) 03/08/20 07:20 Urine Occult Blood 3+ (NEGATIVE) 03/08/20 07:20 Urine Nitrite Negative (NEGATIVE) 03/08/20 07:20 Urine Bilirubin Negative (NEGATIVE) 03/08/20 07:20 Urine Urobilinogen Normal (NORMAL) 03/08/20 07:20 Ur Leukocyte Esterase Negative (NEGATIVE) 03/08/20 07:20 Urine RBC 3-5 /HPF (0-3) A 03/08/20 07:20 Urine WBC None seen /HPF (0-5) 03/08/20 07:20 Ur Squamous Epith Cells Rare /HPF (NEGATIVE) 03/08/20 07:20 Urine Bacteria Negative /HPF (NEGATIVE) 03/08/20 07:20 Ur Culture Indicated? No/not indicated 03/08/20 07:20 Ur Random Sodium 41 mmol/L (40-220) 03/10/20 16:04 Influenza Type A Ag Negative-presumptive (NEGATIVE) 03/04/20 14:29 Influenza Type B Ag Negative-presumptive (NEGATIVE) 03/04/20 14:29 SARS-CoV-2 (PCR) Positive (NEGATIVE) A 03/04/20 14:29 S. pyogenes (TEM-PCR) Not detected (NOT DETECT) 03/04/20 14:29 Blood Type O POSITIVE 03/08/20 09:05 Plan (1) Acute respiratory failure with hypoxia and hypercapnia: Status: Acute (2) Delirium: Status: Acute (3) Agitation: Status: Acute (4) Acute hypoxemic respiratory failure due to COVID-19: Status: Acute (5) Pneumonia due to 2019 novel coronavirus: Status: Acute (6) Acute renal failure: Status: Acute Qualifiers: Acute renal failure type: unspecified Qualified Code(s): N17.9 - Acute kidney failure, unspecified (7) Hypernatremia: Status: Acute (8) HTN (hypertension): Status: Acute Qualifiers: Hypertension type: essential hypertension Qualified Code(s): I10 - Essential (primary) hypertension (9) Anxiety: Status: Acute
[2020-03-11] MEDS: ALPHAGAN 0.2% OPHTH SOLN OP SCH (12:23)
[2020-03-11] MEDS: ASPIRIN 81 MG CHEWTAB PO SCH (12:24)
[2020-03-11] MEDS: NORVASC TAB 5 MG PO SCH (12:24)
[2020-03-11] MEDS: LOTEPREDNOL ETABONATE OP SCH (12:24)
[2020-03-11] MEDS: VITAMIN C PO SCH (12:25)
[2020-03-11] MEDS: PROTONIX TAB 40 MG PO SCH (12:25)
[2020-03-11] MEDS: TIMOPTIC 0.5% EYE DROPS OP SCH (12:25)
[2020-03-11] MEDS: ZINC SULFATE PO SCH ×2 (12:26→20:40)
[2020-03-11] MEDS: VITAMIN D3 125 mcg (5,000 UNITS) PO SCH (12:26)
[2020-03-11] MEDS: TUSSIONEX PENNKINETIC SUSP PO PRN (12:27)
[2020-03-11] MEDS: VENTOLIN or PROAIR HFA IN SCH ×3 (14:14→21:45)
[2020-03-11] MEDS: ILOTYCIN OPHTH OINT OP SCH (20:40)
[2020-03-11] MEDS: FLOMAX PO SCH (20:40)
[2020-03-11] MEDS: LIPITOR TAB 20 MG PO SCH (20:40)
[2020-03-11] MEDS: TRICOR TAB 145 MG PO SCH (20:40)
[2020-03-11] MEDS: SNACK - Diabetic Appropriate PO SCH (20:40)
[2020-03-12] MEDS: TUSSIONEX PENNKINETIC SUSP PO PRN ×2 (00:22→13:15)
[2020-03-12] MEDS: SOLU-Medrol 40 MG VIAL IVP SCH ×4 (03:58→21:38)
[2020-03-12 05:39] LABS: BASOPHILS % (AUTO) 0.1 % (0.2-1.0); HEMATOCRIT 38.3 % (42.0-54.0); HEMOGLOBIN 12.9 g/dL (13.5-18.0); LYMPHOCYTES # (AUTO) 0.4 X10^3/uL (1.3-2.9); LYMPHOCYTES % (AUTO) 5.1 % (21.0-51.0); MEAN CORPUSCULAR HEMOGLOBIN 29.6 pg (27.0-34.0); MEAN CORPUSCULAR HGB CONC 33.7 g/dL (33.0-35.0); MEAN CORPUSCULAR VOLUME 87.8 fL (80.0-100.0); MEAN PLATELET VOLUME 8.1 fL (7.4-11.0); MONOCYTES # (AUTO) 0.3 x10^3/uL (0.3-0.8); MONOCYTES % (AUTO) 3.3 % (0.0-13.0); NEUTROPHILS # (AUTO) 7.5 x10^3/uL (2.2-4.8); NEUTROPHILS % (AUTO) 91.5 % (42.0-75.0); PLATELET COUNT 259 X10^3/uL (150.0-450.0); RED BLOOD COUNT 4.36 X10^6/uL (4.7-6.0); RED CELL DISTRIBUTION WIDTH 13.9 % (11.6-16.5); WHITE BLOOD COUNT 8.2 X10^3/uL (3.6-10.0)
[2020-03-12] MEDS: DUONEB 0.5 MG/3 MG (3 mL) NEB SCH ×3 (05:50→21:58)
[2020-03-12 05:55] LABS: ALBUMIN 2.4 g/dL (3.4-5.0); CALCIUM 8.8 mg/dL (8.5-10.1); CARBON DIOXIDE 37.5 mmol/L (21-32); COR CA(FOR HYPOALB) 10.1 mg/dL (8.5-10.1); CREATININE 1.74 mg/dL (0.70-1.30); TOTAL PROTEIN 6.5 g/dL (6.4-8.2)
[2020-03-12] MEDS: ZOSYN VIAL 3.375 GRAMS 3.375 G in NS 100 ML IV + SPIKE MINIBAG* 100 ML IV SCH ×3 (06:00→21:39)
[2020-03-12] MEDS: HumuLIN R SUBCUT PRN ×2 (06:00→20:55)
[2020-03-12] MEDS: D5W 1000 ML IV 1,000 ML IV SCH ×2 (06:00→18:07)
[2020-03-12 06:08] LABS: PLATELET MORPHOLOGY COMMENT NORMAL (NORMAL)
[2020-03-12] MEDS: XANAX PO PRN ×3 (06:44→23:46)
[2020-03-12] MEDS: VENTOLIN or PROAIR HFA IN SCH ×4 (08:42→21:58)
[2020-03-12] MEDS: DECADRON JET NEB (RESP USE) NEB SCH ×3 (08:42→21:58)
[2020-03-12] MEDS ORDERED: LR 1000 ML IV 1,000 ML IV ONE (08:56)
[2020-03-12] MEDS ORDERED: ATIVAN TAB 0.5 MG PO PRN (09:14)
[2020-03-12] MEDS: VITAMIN C PO SCH (10:00)
[2020-03-12] MEDS: PROTONIX TAB 40 MG PO SCH (10:00)
[2020-03-12] MEDS: HEPARIN SODIUM INJ 5000 UNITS SC SCH ×2 (10:00→20:55)
[2020-03-12] MEDS: REMDESIVIR (INVESTIGATIONAL DRUG GS-5734) 100 MG in NS 250 ML IV 250 ML IV SCH (10:00)
[2020-03-12] MEDS: NORVASC TAB 5 MG PO SCH (10:00)
[2020-03-12] MEDS: TIMOPTIC 0.5% EYE DROPS OP SCH (10:00)
[2020-03-12] MEDS: LASIX IVP SCH (10:00)
[2020-03-12] MEDS: ALPHAGAN 0.2% OPHTH SOLN OP SCH (10:00)
[2020-03-12] MEDS: LOTEPREDNOL ETABONATE OP SCH (10:00)
[2020-03-12] MEDS: ZINC SULFATE PO SCH ×2 (10:00→20:55)
[2020-03-12] MEDS: VITAMIN D3 125 mcg (5,000 UNITS) PO SCH (10:00)
[2020-03-12] MEDS: ASPIRIN 81 MG CHEWTAB PO SCH (11:10)
[2020-03-12] MEDS: ATIVAN INJ 2 MG VIAL IVP PRN ×2 (15:45→21:44)
[2020-03-12] MEDS: LIPITOR TAB 20 MG PO SCH (20:55)
[2020-03-12] MEDS: ILOTYCIN OPHTH OINT OP SCH (20:55)
[2020-03-12] MEDS: FLOMAX PO SCH (20:55)
[2020-03-12] MEDS: SNACK - Diabetic Appropriate PO SCH (20:55)
[2020-03-12] MEDS: TRICOR TAB 145 MG PO SCH (20:55)
[2020-03-13] MEDS: D5W 1000 ML IV 1,000 ML IV SCH ×2 (00:25→13:26)
[2020-03-13] MEDS: SOLU-Medrol 40 MG VIAL IVP SCH ×3 (03:52→15:23)
[2020-03-13] MEDS: ATIVAN INJ 2 MG VIAL IVP PRN ×4 (03:53→21:25)
[2020-03-13] MEDS: ZOSYN VIAL 3.375 GRAMS 3.375 G in NS 100 ML IV + SPIKE MINIBAG* 100 ML IV SCH ×3 (05:08→21:25)
[2020-03-13] MEDS: DUONEB 0.5 MG/3 MG (3 mL) NEB SCH ×3 (06:09→21:44)
[2020-03-13] MEDS: HumuLIN R SUBCUT PRN (06:12)
[2020-03-13] MEDS: ASPIRIN 81 MG CHEWTAB PO SCH (08:21)
[2020-03-13] MEDS: HEPARIN SODIUM INJ 5000 UNITS SC SCH ×2 (08:22→20:40)
[2020-03-13] MEDS: ALPHAGAN 0.2% OPHTH SOLN OP SCH (08:22)
[2020-03-13] MEDS: LASIX IVP SCH (08:23)
[2020-03-13] MEDS: LOTEPREDNOL ETABONATE OP SCH (08:24)
[2020-03-13] MEDS: NORVASC TAB 5 MG PO SCH (08:24)
[2020-03-13] MEDS: PROTONIX TAB 40 MG PO SCH (08:24)
[2020-03-13] MEDS: REMDESIVIR (INVESTIGATIONAL DRUG GS-5734) 100 MG in NS 250 ML IV 250 ML IV SCH (08:25)
[2020-03-13] MEDS: TIMOPTIC 0.5% EYE DROPS OP SCH (08:25)
[2020-03-13] MEDS: VITAMIN C PO SCH (08:26)
[2020-03-13] MEDS: VITAMIN D3 125 mcg (5,000 UNITS) PO SCH (08:26)
[2020-03-13] MEDS: ZINC SULFATE PO SCH ×2 (08:27→20:40)
[2020-03-13] MEDS: TUSSIONEX PENNKINETIC SUSP PO PRN ×2 (08:31→20:40)
[2020-03-13] MEDS: XANAX PO PRN ×2 (08:31→16:10)
[2020-03-13] MEDS: VENTOLIN or PROAIR HFA IN SCH ×5 (09:01→21:44)
[2020-03-13] MEDS: DECADRON JET NEB (RESP USE) NEB SCH ×2 (09:01→21:44)
[2020-03-13] MEDS: LIPITOR TAB 20 MG PO SCH (20:40)
[2020-03-13] MEDS: SNACK - Diabetic Appropriate PO SCH (20:40)
[2020-03-13] MEDS: FLOMAX PO SCH (20:40)
[2020-03-13] MEDS: TRICOR TAB 145 MG PO SCH (20:40)
[2020-03-13] MEDS: ILOTYCIN OPHTH OINT OP SCH (20:40)
[2020-03-14] MEDS: XANAX PO PRN ×2 (01:33→18:26)
[2020-03-14] MEDS: ATIVAN INJ 2 MG VIAL IVP PRN ×3 (03:35→21:00)
[2020-03-14] MEDS: D5W 1000 ML IV 1,000 ML IV SCH ×2 (03:38→16:10)
[2020-03-14] MEDS: ZOSYN VIAL 3.375 GRAMS 3.375 G in NS 100 ML IV + SPIKE MINIBAG* 100 ML IV SCH ×3 (05:17→21:01)
[2020-03-14 05:24] LABS: BASOPHILS % (AUTO) 0.4 % (0.2-1.0); HEMATOCRIT 37.6 % (42.0-54.0); HEMOGLOBIN 12.5 g/dL (13.5-18.0); LYMPHOCYTES # (AUTO) 0.4 X10^3/uL (1.3-2.9); LYMPHOCYTES % (AUTO) 4.2 % (21.0-51.0); MEAN CORPUSCULAR HEMOGLOBIN 29.3 pg (27.0-34.0); MEAN CORPUSCULAR HGB CONC 33.2 g/dL (33.0-35.0); MEAN CORPUSCULAR VOLUME 88.3 fL (80.0-100.0); MEAN PLATELET VOLUME 8.4 fL (7.4-11.0); MONOCYTES # (AUTO) 0.6 x10^3/uL (0.3-0.8); MONOCYTES % (AUTO) 6.7 % (0.0-13.0); NEUTROPHILS # (AUTO) 7.9 x10^3/uL (2.2-4.8); NEUTROPHILS % (AUTO) 88.7 % (42.0-75.0); PLATELET COUNT 218 X10^3/uL (150.0-450.0); RED BLOOD COUNT 4.26 X10^6/uL (4.7-6.0); RED CELL DISTRIBUTION WIDTH 14.1 % (11.6-16.5); WHITE BLOOD COUNT 8.9 X10^3/uL (3.6-10.0)
--- NOTE | 2020-03-14 05:27 | RAD ---
HISTORYPneumoniaSTUDYAP [id number] cardiomegaly. Persistent bilateral peripheral pulmonary in filtrates with no new areas of involvement identified. The pleural spaces remain clear.IMPRESSIONStab le cardiomegaly. No change in appearance of bilateral infiltrates consistent with atypical pneumonia. Electronically signed by: JOANN HAYES (Mar 14, 2020 05:27:22)
[2020-03-14 05:36] LABS: ALBUMIN 2.2 g/dL (3.4-5.0); CALCIUM 8.5 mg/dL (8.5-10.1); COR CA(FOR HYPOALB) 9.9 mg/dL (8.5-10.1); CREATININE 1.66 mg/dL (0.70-1.30); TOTAL PROTEIN 5.9 g/dL (6.4-8.2)
[2020-03-14] MEDS: DUONEB 0.5 MG/3 MG (3 mL) NEB SCH ×4 (06:20→22:27)
[2020-03-14] MEDS ORDERED: DECADRON TAB PO SCH (09:00)
[2020-03-14] MEDS: LOTEPREDNOL ETABONATE OP SCH ×2 (09:18→13:45)
[2020-03-14] MEDS: ASPIRIN 81 MG CHEWTAB PO SCH ×2 (09:18→11:38)
[2020-03-14] MEDS: ALPHAGAN 0.2% OPHTH SOLN OP SCH ×2 (09:18→11:38)
[2020-03-14] MEDS: ZINC SULFATE PO SCH ×3 (09:19→21:04)
[2020-03-14] MEDS: TIMOPTIC 0.5% EYE DROPS OP SCH ×2 (09:19→11:39)
[2020-03-14] MEDS: NORVASC TAB 5 MG PO SCH ×2 (09:19→11:38)
[2020-03-14] MEDS: PROTONIX TAB 40 MG PO SCH ×2 (09:19→11:39)
[2020-03-14] MEDS: VITAMIN D3 125 mcg (5,000 UNITS) PO SCH ×2 (09:20→11:40)
[2020-03-14] MEDS: VITAMIN C PO SCH ×2 (09:20→11:40)
[2020-03-14] MEDS: HEPARIN SODIUM INJ 5000 UNITS SC SCH ×2 (09:30→22:04)
[2020-03-14] MEDS: LASIX IVP SCH (09:30)
--- NOTE | 2020-03-14 09:33 | PCM.PROG ---
Progress Note Progress Note for Day of Date of Exam: 03/14/20 Subjective Subjective: Patient seen at bedside, overnight patient has episodes of extreme agitation and restlessness where he kept pulling everything. He is currently resting. He has been on hi-flow, currently at FiO2 90%. Patient has completed course of Remdesivir, received on plasma treatment. He has not been able to be weaned off hi-flow O2. Labs: Hgb 12.5 , Na: 150 BUN/Cr: 47/1.66 CO2: 39 CXR: b/l pulmonary infiltrates, no new areas of worsening Plan: will DC steroids due to concern for steroid induced psychosis, DC Remdesivir as patient has completed course. Will need to discuss with family regarding goals of care as patient continues to require hi-flow O2 since admission. Add seroquel for sun-downing. Wean O2 as titrated. Order another plasma. Monitor AM labs. Patient remains in critical condition, time spent reviewing labs/imaging, clinical assessment, documentation and decision making 31-74 mins. Past Medical Family Social History Past Med/Fam/Surg Hx: No changes since H&P Allergies: Allergies morphine Allergy (Verified 03/04/20 14:20) zolpidem [From Ambien] Allergy (Verified 03/04/20 14:20) Review of Systems ROS: No change since H&P Vital Signs and I&O's Vital Signs: Temperature 98.2 F Pulse Rate 71 Respiratory Rate 19 Blood Pressure 107/57 O2 Sat by Pulse Oximetry 94 Intake and Output: Intake & Output 03/11/20 03/12/20 03/13/20 03/14/20 23:59 23:59 23:59 23:59 Intake Total 2932 / 2932 2782 / 2782 2499 / 2499 670 / 670 Output Total 3025 / 3025 2800 / 2800 3400 / 3400 500 / 500 Balance -93 / -93 -18 / -18 -901 / -901 170 / 170 Physical Exam Oriented: Unable to test Ear: Normal Nose: Normal Respiratory: Generalized and Diminished Cardiovascular: Normal and Edema (improved ) Auscultation: Bowel Sounds: Normal Tenderness: Normal Skin: Decreased Turgur Musculoskeletal: Normal and Arm (edema improved ) Mood Description: Calm Affect: Normal Speech Pattern: Artificially Ventilated (currently on hi-flow, resting ) Laboratory and Diagnostics Result Diagrams: 03/14/20 04:44 03/14/20 04:44 Labs: 03/04/20 14:40 Blood Blood Culture - Final Staphylococcus Hominis 03/08/20 14:45 Blood Blood Culture - Preliminary 03/08/20 14:35 Blood Blood Culture - Preliminary 03/04/20 14:45 Blood Blood Culture - Final Laboratory WBC 8.9 X10^3/uL (3.6-10.0) 03/14/20 04:44 RBC 4.26 X10^6/uL (4.7-6.0) L 03/14/20 04:44 Hgb 12.5 g/dL (13.5-18.0) L 03/14/20 04:44 Hct 37.6 % (42.0-54.0) L 03/14/20 04:44 MCV 88.3 fL (80.0-100.0) 03/14/20 04:44 MCH 29.3 pg (27.0-34.0) 03/14/20 04:44 MCHC 33.2 g/dL (33.0-35.0) 03/14/20 04:44 RDW 14.1 % (11.6-16.5) 03/14/20 04:44 Plt Count 218 X10^3/uL (150.0-450.0) 03/14/20 04:44 Plt Count Comment Adequate (ADEQUATE) 03/12/20 04:59 MPV 8.4 fL (7.4-11.0) 03/14/20 04:44 Neut % (Auto) 88.7 % (42.0-75.0) H 03/14/20 04:44 Lymph % (Auto) 4.2 % (21.0-51.0) L 03/14/20 04:44 [place] % (Auto) 6.7 % (0.0-13.0) 03/14/20 04:44 Eos % (Auto) 0.0 % (0.9-2.9) L 03/14/20 04:44 Baso % (Auto) 0.4 % (0.2-1.0) 03/14/20 04:44 Neut # (Auto) 7.9 x10^3/uL (2.2-4.8) H 03/14/20 04:44 Lymph # (Auto) 0.4 X10^3/uL (1.3-2.9) L 03/14/20 04:44 [place] # (Auto) 0.6 x10^3/uL (0.3-0.8) 03/14/20 04:44 Eos # (Auto) 0.0 x10^3/uL (0.0-0.2) 03/14/20 04:44 Baso # (Auto) 0.0 X10^3/uL (0.0-0.1) 03/14/20 04:44 Absolute Nucleated RBC 0.1 /100WBC 03/14/20 04:44 Total Counted 100 03/12/20 04:59 Neutrophils % (Manual) 90 % (39-76) H 03/12/20 04:59 Lymphocytes % (Manual) 7 % (13-43) L 03/12/20 04:59 Monocytes % (Manual) 3 % (4-9) L 03/12/20 04:59 Plt Morphology Comment Normal (NORMAL) 03/12/20 04:59 RBC Morphology Normal (NORMAL) 03/12/20 04:59 D-Dimer 0.46 ug/ml (0.0-0.57) 03/04/20 14:40 Sample Site Right brachial 03/11/20 08:20 ABG pH 7.430 (7.35-7.45) 03/11/20 08:20 ABG pCO2 65.0 mmHg (35.0-45.0) H* 03/11/20 08:20 ABG pO2 70.0 mmHg (80.0-100.0) L 03/11/20 08:20 ABG HCO3 43.1 mmol/L (22-26) H* 03/11/20 08:20 ABG O2 Saturation 94.0 % (90-100) 03/11/20 08:20 ABG Base Excess 15.8 mmol/L (-2.0-2.0) H 03/11/20 08:20 Capo Test Na 03/11/20 08:20 A-a Gradient 412.0 mmHg 03/11/20 08:20 FiO2 79.0 03/11/20 08:20 Blood Gas Comments Tyler well aw 03/11/20 08:20 Sodium 147 mmol/L (136-145) H 03/14/20 04:44 Corrected Sodium 150 mmol/L (136-145) H 03/14/20 04:44 Potassium 3.7 mmol/L (3.5-5.1) 03/14/20 04:44 Chloride 106 mmol/L (98-107) 03/14/20 04:44 Carbon Dioxide 39.0 mmol/L (21-32) H 03/14/20 04:44 BUN 47 mg/dL (7-18) H 03/14/20 04:44 Creatinine 1.66 mg/dL (0.70-1.30) H 03/14/20 04:44 Est GFR (MDRD) Af Amer 52 (>60) L 03/14/20 04:44 Est GFR (MDRD) Non-Af 43 (>60) L 03/14/20 04:44 Glucose 227 mg/dL (65-99) H 03/14/20 04:44 POC Glucose (mg/dL) 215 mg/dL (65-99) H 03/14/20 05:21 Calcium 8.5 mg/dL (8.5-10.1) 03/14/20 04:44 Corrected Calcium 9.9 mg/dL (8.5-10.1) 03/14/20 04:44 Magnesium 2.3 mg/dL (1.7-2.9) 03/09/20 04:30 Ferritin 1554 ng/mL (26-388) H 03/04/20 14:40 Total Bilirubin 0.80 mg/dL (0.2-1.0) 03/14/20 04:44 AST 40 Units/L (15-37) H 03/14/20 04:44 ALT 54 Units/L (12-78) 03/14/20 04:44 Alkaline Phosphatase 38 Units/L (46-116) L 03/14/20 04:44 Creatine Kinase 212 Units/L (39-308) 03/05/20 09:40 CK-MB (CK-2) < 1.0 ng/mL (0-4.0) 03/05/20 09:40 CK/CKMB % Calc 0.5 % (<4) 03/05/20 09:40 Troponin I < 0.02 ng/mL (0-1.5) 03/05/20 09:40 C-Reactive Protein 9.00 mg/L (0-3.0) H 03/09/20 04:30 Total Protein 5.9 g/dL (6.4-8.2) L 03/14/20 04:44 Albumin 2.2 g/dL (3.4-5.0) L 03/14/20 04:44 Globulin 3.7 g/dL (2.5-4.5) 03/14/20 04:44 Albumin/Globulin Ratio 0.6 Ratio (1.1-2.1) L 03/14/20 04:44 Specimen Type Catherized urine 03/08/20 07:20 Urine Color Yellow (YELLOW) 03/08/20 07:20 Urine Appearance Clear (CLEAR) 03/08/20 07:20 Urine pH 5.0 (5.0 - 8.0) 03/08/20 07:20 Ur Specific [place] 1.015 (1.000-1.030) 03/08/20 07:20 Urine Protein 1+ (NEGATIVE) 03/08/20 07:20 Urine Glucose (UA) 4+ (NEGATIVE) 03/08/20 07:20 Urine Ketones Negative (NEGATIVE) 03/08/20 07:20 Urine Occult Blood 3+ (NEGATIVE) 03/08/20 07:20 Urine Nitrite Negative (NEGATIVE) 03/08/20 07:20 Urine Bilirubin Negative (NEGATIVE) 03/08/20 07:20 Urine Urobilinogen Normal (NORMAL) 03/08/20 07:20 Ur Leukocyte Esterase Negative (NEGATIVE) 03/08/20 07:20 Urine RBC 3-5 /HPF (0-3) A 03/08/20 07:20 Urine WBC None seen /HPF (0-5) 03/08/20 07:20 Ur Squamous Epith Cells Rare /HPF (NEGATIVE) 03/08/20 07:20 Urine Bacteria Negative /HPF (NEGATIVE) 03/08/20 07:20 Ur Culture Indicated? No/not indicated 03/08/20 07:20 Ur Random Sodium 41 mmol/L (40-220) 03/10/20 16:04 Influenza Type A Ag Negative-presumptive (NEGATIVE) 03/04/20 14:29 Influenza Type B Ag Negative-presumptive (NEGATIVE) 03/04/20 14:29 SARS-CoV-2 (PCR) Positive (NEGATIVE) A 03/04/20 14:29 S. pyogenes (TEM-PCR) Not detected (NOT DETECT) 03/04/20 14:29 Blood Type O POSITIVE 03/08/20 09:05 Plan (1) Acute respiratory failure with hypoxia and hypercapnia: Status: Acute (2) Delirium: Status: Acute (3) Agitation: Status: Acute (4) Acute hypoxemic respiratory failure due to COVID-19: Status: Acute (5) Pneumonia due to 2019 novel coronavirus: Status: Acute (6) Acute renal failure: Status: Acute Qualifiers: Acute renal failure type: unspecified Qualified Code(s): N17.9 - Acute kidney failure, unspecified (7) Hypernatremia: Status: Acute (8) HTN (hypertension): Status: Acute Qualifiers: Hypertension type: essential hypertension Qualified Code(s): I10 - Essential (primary) hypertension (9) Anxiety: Status: Acute
[2020-03-14] MEDS: VENTOLIN or PROAIR HFA IN SCH ×3 (14:19→22:27)
[2020-03-14] MEDS: HumuLIN R SUBCUT PRN (17:02)
[2020-03-14] MEDS: SNACK - Diabetic Appropriate PO SCH (20:00)
[2020-03-14] MEDS: FLOMAX PO SCH (20:58)
[2020-03-14] MEDS ORDERED: MILK OF MAGNESIA PO SCH (21:00)
[2020-03-14] MEDS ORDERED: SEROquel TAB 25 mg PO SCH (21:00)
[2020-03-14] MEDS ORDERED: COLACE CAP 100 MG PO SCH (21:00)
[2020-03-14] MEDS: TRICOR TAB 145 MG PO SCH (21:04)
[2020-03-14] MEDS: LIPITOR TAB 20 MG PO SCH (21:05)
[2020-03-14] MEDS: ILOTYCIN OPHTH OINT OP SCH (22:00)
[2020-03-15] MEDS: XANAX PO PRN (04:00)
[2020-03-15] MEDS: D5W 1000 ML IV 1,000 ML IV SCH (05:04)
[2020-03-15 05:28] LABS: BASOPHILS % (AUTO) 0.1 % (0.2-1.0); EOSINOPHILS # (AUTO) 0.1 x10^3/uL (0.0-0.2); EOSINOPHILS % (AUTO) 0.7 % (0.9-2.9); HEMATOCRIT 41.5 % (42.0-54.0); HEMOGLOBIN 13.8 g/dL (13.5-18.0); LYMPHOCYTES # (AUTO) 0.9 X10^3/uL (1.3-2.9); LYMPHOCYTES % (AUTO) 8.7 % (21.0-51.0); MEAN CORPUSCULAR HEMOGLOBIN 29.3 pg (27.0-34.0); MEAN CORPUSCULAR HGB CONC 33.2 g/dL (33.0-35.0); MEAN CORPUSCULAR VOLUME 88.3 fL (80.0-100.0); MEAN PLATELET VOLUME 8.7 fL (7.4-11.0); MONOCYTES # (AUTO) 0.4 x10^3/uL (0.3-0.8); MONOCYTES % (AUTO) 4.3 % (0.0-13.0); NEUTROPHILS # (AUTO) 8.8 x10^3/uL (2.2-4.8); NEUTROPHILS % (AUTO) 86.2 % (42.0-75.0); PLATELET COUNT 185 X10^3/uL (150.0-450.0); RED BLOOD COUNT 4.69 X10^6/uL (4.7-6.0); RED CELL DISTRIBUTION WIDTH 14.1 % (11.6-16.5); WHITE BLOOD COUNT 10.2 X10^3/uL (3.6-10.0)
[2020-03-15 05:47] LABS: ALBUMIN 2.4 g/dL (3.4-5.0); CALCIUM 8.6 mg/dL (8.5-10.1); CARBON DIOXIDE 36.4 mmol/L (21-32); COR CA(FOR HYPOALB) 9.9 mg/dL (8.5-10.1); CREATININE 1.8 mg/dL (0.70-1.30); MAGNESIUM 2.4 mg/dL (1.7-2.9); TOTAL PROTEIN 6.4 g/dL (6.4-8.2)
[2020-03-15] MEDS: DUONEB 0.5 MG/3 MG (3 mL) NEB SCH ×2 (06:23→09:00)
[2020-03-15] MEDS: ZOSYN VIAL 3.375 GRAMS 3.375 G in NS 100 ML IV + SPIKE MINIBAG* 100 ML IV SCH (06:43)
[2020-03-15] MEDS ORDERED: ATIVAN INJ 2 MG VIAL IVP ONE (08:22)
[2020-03-15] MEDS ORDERED: ATIVAN INJ 2 MG VIAL ONE (08:24)
[2020-03-15] MEDS ORDERED: ATIVAN INJ 2 MG VIAL IVP PRN (08:29)
[2020-03-15 08:37] LABS: ABG BASE EXCESS 17.8 mmol/L (-2.0-2.0)
[2020-03-15 08:39] LABS: ABG HCO3 42.8 mmol/L (22-26)
[2020-03-15] MEDS: ALPHAGAN 0.2% OPHTH SOLN OP SCH (08:51)
[2020-03-15] MEDS: HEPARIN SODIUM INJ 5000 UNITS SC SCH (08:54)
[2020-03-15] MEDS: VENTOLIN or PROAIR HFA IN SCH ×2 (09:00→12:53)
[2020-03-15] MEDS: LOTEPREDNOL ETABONATE OP SCH (09:20)
[2020-03-15] MEDS: TIMOPTIC 0.5% EYE DROPS OP SCH (09:20)
[2020-03-15] MEDS: NORVASC TAB 5 MG PO SCH (09:21)
[2020-03-15] MEDS: ASPIRIN 81 MG CHEWTAB PO SCH (09:43)
[2020-03-15] MEDS: PROTONIX TAB 40 MG PO SCH (09:44)
[2020-03-15] MEDS: VITAMIN C PO SCH (09:44)
[2020-03-15] MEDS: ZINC SULFATE PO SCH (09:45)
[2020-03-15] MEDS: VITAMIN D3 125 mcg (5,000 UNITS) PO SCH (09:45)
[2020-03-15] MEDS ORDERED: DIPRIVAN VIAL 20 ML ONE (09:57)
[2020-03-15] MEDS ORDERED: QUELICIN (OR ANECTINE) ONE (09:58)
[2020-03-15] MEDS ORDERED: DIPRIVAN PREMIX 1 GRAM IV 1,000 MG/100 ML VIAL ONE ×2 (10:13→11:21)
--- NOTE | 2020-03-15 11:19 | RAD ---
HISTORYHYPOXIA, COVID, ET TUBE PLACEMENT, CENTRAL LINE PLACEMENTSTUDYCHEST x-ray, 1 VIEWCOMPARISONX-ray from previous dayFINDINGSEndotracheal tube terminates 3.5 cm above the renetta. Central venous catheter terminates in the region of the mid SVC. There is persistent cardiomegaly without pulmonary venous congestion.Bilateral, peripheral lung infiltrates are probably due to COVID-19 pneumonia. No pneumothorax or pleural effusion is seen.IMPRESSIONBilateral pneumonia is similar to prior study.Electronically signed by: Timothy Morales (Mar 15, 2020 11:18:48)
--- NOTE | 2020-03-15 11:21 | DR.UPDATE ---
H&P Update History and Physical Update: History and Physical reviewed and patient examined. Changes noted: NO Yes with the following:agree with H&P. will intubate and place central line H&P Reviewed: Yes Patient was examined?: Yes Procedures (ALL) - Central Line Placement PCM.CLCO: written consent Time out performed: Yes Patient placed pm monitor/pulse ox: Yes MD prep: mask, gown, gloves, other Centrial line prep: chlorhexidine scrub Ultrasound used for placement: Yes (right IJ easily id'd) Central line lumen ininserted: triple Post procedure: sutured in place, good blood return, all ports aspirated, flushed,capped, sterile dressing applied Post procedure xray: tip oc catheter in good position, no pneumothorax seen Patient tolerated procedure: Yes Complications: none - Intubation Time out performed: Yes Sedative: other (propofol 150mg) paralytic: succinylchline (120mg, vecuronium 10mg after return of spontaneous respirations) Laryngoscope: fiber optic video scope (glidescope 3. grade 1 view.) ET tube size: 8 Tube secured depth: 22 Tube secured location: teeth Tube placement confirmation: visualized tube passing through cords, equal breath sounds bilaterally, no breath sounds over epigastrium, comfirmation by capnometer Patient tolerated procedure: Yes Intubation complications: none
--- NOTE | 2020-03-15 12:32 | PCM.PROG ---
Progress Note Progress Note for Day of Date of Exam: 03/15/20 Subjective Subjective: Patient seen at bedside, overnight patient remained on hi-flow. He did have some agitation episodes but not as severe as prev nights. He is currently on max hi-flow O2 and sats are mid 80s. He opens eyes to name, able to follow simple commands like squeezing hands. Patient did receive 2nd plasma yesterday. Labs: WBC: 10.2 Hgb: 13.8 Na: 147 BUN/Cr: 44/1.80 CRP: 30 Plan: discussed patient's current status with patient's daughter. Discussed need to intubate and transfer. Daughter and son verbalized understanding and gave consent. Will repeat ABG and CXR this AM. Transition to BiPAP for now and then intubate. Will let charge nurse know to start transfer process. Patient remains in critical condition, time spent reviewing labs/imaging, clinical assessment, documentation and decision making 31-74 mins. Past Medical Family Social History Past Med/Fam/Surg Hx: No changes since H&P Allergies: Allergies morphine Allergy (Verified 03/04/20 14:20) zolpidem [From Ambien] Allergy (Verified 03/04/20 14:20) Review of Systems ROS: No change since H&P Vital Signs and I&O's Vital Signs: Temperature 98.4 F Pulse Rate 111 Respiratory Rate 29 Blood Pressure 131/100 O2 Sat by Pulse Oximetry 89 Intake and Output: Intake & Output 03/12/20 03/13/20 03/14/20 03/15/20 23:59 23:59 23:59 23:59 Intake Total 2782 / 2782 2499 / 2499 2107 / 2107 800 / 800 Output Total 2800 / 2800 3400 / 3400 3050 / 3050 Balance -18 / -18 -901 / -901 -943 / -943 800 / 800 Physical Exam Oriented: Unable to test Eyes: Normal Ear: Normal Nose: Normal Respiratory: Generalized and Diminished Cardiovascular: Normal and Edema (improved ) Auscultation: Bowel Sounds: Normal Tenderness: Normal Skin: Decreased Turgur Musculoskeletal: Normal and Arm (edema improved ) Psychiatric: Anxiety Mood Description: Anxious Affect: Anxious Speech Pattern: Inappropriate Laboratory and Diagnostics Result Diagrams: 03/15/20 04:55 03/15/20 04:55 Labs: 03/08/20 14:45 Blood Blood Culture - Final 03/08/20 14:35 Blood Blood Culture - Final 03/04/20 14:40 Blood Blood Culture - Final Staphylococcus Hominis 03/04/20 14:45 Blood Blood Culture - Final Laboratory WBC 10.2 X10^3/uL (3.6-10.0) H 03/15/20 04:55 RBC 4.69 X10^6/uL (4.7-6.0) L 03/15/20 04:55 Hgb 13.8 g/dL (13.5-18.0) 03/15/20 04:55 Hct 41.5 % (42.0-54.0) L 03/15/20 04:55 MCV 88.3 fL (80.0-100.0) 03/15/20 04:55 MCH 29.3 pg (27.0-34.0) 03/15/20 04:55 MCHC 33.2 g/dL (33.0-35.0) 03/15/20 04:55 RDW 14.1 % (11.6-16.5) 03/15/20 04:55 Plt Count 185 X10^3/uL (150.0-450.0) 03/15/20 04:55 Plt Count Comment Adequate (ADEQUATE) 03/12/20 04:59 MPV 8.7 fL (7.4-11.0) 03/15/20 04:55 Neut % (Auto) 86.2 % (42.0-75.0) H 03/15/20 04:55 Lymph % (Auto) 8.7 % (21.0-51.0) L 03/15/20 04:55 [place] % (Auto) 4.3 % (0.0-13.0) 03/15/20 04:55 Eos % (Auto) 0.7 % (0.9-2.9) L 03/15/20 04:55 Baso % (Auto) 0.1 % (0.2-1.0) L 03/15/20 04:55 Neut # (Auto) 8.8 x10^3/uL (2.2-4.8) H 03/15/20 04:55 Lymph # (Auto) 0.9 X10^3/uL (1.3-2.9) L 03/15/20 04:55 [place] # (Auto) 0.4 x10^3/uL (0.3-0.8) 03/15/20 04:55 Eos # (Auto) 0.1 x10^3/uL (0.0-0.2) 03/15/20 04:55 Baso # (Auto) 0.0 X10^3/uL (0.0-0.1) 03/15/20 04:55 Absolute Nucleated RBC 0.1 /100WBC 03/15/20 04:55 Total Counted 100 03/12/20 04:59 Neutrophils % (Manual) 90 % (39-76) H 03/12/20 04:59 Lymphocytes % (Manual) 7 % (13-43) L 03/12/20 04:59 Monocytes % (Manual) 3 % (4-9) L 03/12/20 04:59 Plt Morphology Comment Normal (NORMAL) 03/12/20 04:59 RBC Morphology Normal (NORMAL) 03/12/20 04:59 D-Dimer 0.46 ug/ml (0.0-0.57) 03/04/20 14:40 Sample Site Left brachial 03/15/20 08:32 ABG pH 7.540 (7.35-7.45) H 03/15/20 08:32 ABG pCO2 50.0 mmHg (35.0-45.0) H 03/15/20 08:32 ABG pO2 45.0 mmHg (80.0-100.0) L* 03/15/20 08:32 ABG HCO3 42.8 mmol/L (22-26) H* 03/15/20 08:32 ABG O2 Saturation 86.0 % (90-100) L 03/15/20 08:32 ABG Base Excess 17.8 mmol/L (-2.0-2.0) H 03/15/20 08:32 Capo Test Na 03/15/20 08:32 A-a Gradient 520.0 mmHg 03/15/20 08:32 FiO2 88.0 03/15/20 08:32 Blood Gas Comments [place] well aw 03/15/20 08:32 Sodium 146 mmol/L (136-145) H 03/15/20 04:55 Corrected Sodium 147 mmol/L (136-145) H 03/15/20 04:55 Potassium 3.5 mmol/L (3.5-5.1) 03/15/20 04:55 Chloride 105 mmol/L (98-107) 03/15/20 04:55 Carbon Dioxide 36.4 mmol/L (21-32) H 03/15/20 04:55 BUN 44 mg/dL (7-18) H 03/15/20 04:55 Creatinine 1.80 mg/dL (0.70-1.30) H 03/15/20 04:55 Est GFR (MDRD) Af Amer 47 (>60) L 03/15/20 04:55 Est GFR (MDRD) Non-Af 39 (>60) L 03/15/20 04:55 Glucose 123 mg/dL (65-99) H 03/15/20 04:55 POC Glucose (mg/dL) 120 mg/dL (65-99) H 03/15/20 06:10 Calcium 8.6 mg/dL (8.5-10.1) 03/15/20 04:55 Corrected Calcium 9.9 mg/dL (8.5-10.1) 03/15/20 04:55 Magnesium 2.4 mg/dL (1.7-2.9) 03/15/20 04:55 Ferritin 1554 ng/mL (26-388) H 03/04/20 14:40 Total Bilirubin 1.20 mg/dL (0.2-1.0) H 03/15/20 04:55 AST 54 Units/L (15-37) H 03/15/20 04:55 ALT 60 Units/L (12-78) 03/15/20 04:55 Alkaline Phosphatase 44 Units/L (46-116) L 03/15/20 04:55 Creatine Kinase 212 Units/L (39-308) 03/05/20 09:40 CK-MB (CK-2) < 1.0 ng/mL (0-4.0) 03/05/20 09:40 CK/CKMB % Calc 0.5 % (<4) 03/05/20 09:40 Troponin I < 0.02 ng/mL (0-1.5) 03/05/20 09:40 C-Reactive Protein 30.60 mg/L (0-3.0) H 03/15/20 04:55 Total Protein 6.4 g/dL (6.4-8.2) 03/15/20 04:55 Albumin 2.4 g/dL (3.4-5.0) L 03/15/20 04:55 Globulin 4.0 g/dL (2.5-4.5) 03/15/20 04:55 Albumin/Globulin Ratio 0.6 Ratio (1.1-2.1) L 03/15/20 04:55 Specimen Type Catherized urine 03/08/20 07:20 Urine Color Yellow (YELLOW) 03/08/20 07:20 Urine Appearance Clear (CLEAR) 03/08/20 07:20 Urine pH 5.0 (5.0 - 8.0) 03/08/20 07:20 Ur Specific [place] 1.015 (1.000-1.030) 03/08/20 07:20 Urine Protein 1+ (NEGATIVE) 03/08/20 07:20 Urine Glucose (UA) 4+ (NEGATIVE) 03/08/20 07:20 Urine Ketones Negative (NEGATIVE) 03/08/20 07:20 Urine Occult Blood 3+ (NEGATIVE) 03/08/20 07:20 Urine Nitrite Negative (NEGATIVE) 03/08/20 07:20 Urine Bilirubin Negative (NEGATIVE) 03/08/20 07:20 Urine Urobilinogen Normal (NORMAL) 03/08/20 07:20 Ur Leukocyte Esterase Negative (NEGATIVE) 03/08/20 07:20 Urine RBC 3-5 /HPF (0-3) A 03/08/20 07:20 Urine WBC None seen /HPF (0-5) 03/08/20 07:20 Ur Squamous Epith Cells Rare /HPF (NEGATIVE) 03/08/20 07:20 Urine Bacteria Negative /HPF (NEGATIVE) 03/08/20 07:20 Ur Culture Indicated? No/not indicated 03/08/20 07:20 Ur Random Sodium 41 mmol/L (40-220) 03/10/20 16:04 Influenza Type A Ag Negative-presumptive (NEGATIVE) 03/04/20 14:29 Influenza Type B Ag Negative-presumptive (NEGATIVE) 03/04/20 14:29 SARS-CoV-2 (PCR) Positive (NEGATIVE) A 03/04/20 14:29 S. pyogenes (TEM-PCR) Not detected (NOT DETECT) 03/04/20 14:29 Blood Type O POSITIVE 03/08/20 09:05 Plan (1) Acute respiratory failure with hypoxia and hypercapnia: Status: Acute (2) Delirium: Status: Acute (3) Agitation: Status: Acute (4) Acute hypoxemic respiratory failure due to COVID-19: Status: Acute (5) Pneumonia due to 2019 novel coronavirus: Status: Acute (6) Acute renal failure: Status: Acute Qualifiers: Acute renal failure type: unspecified Qualified Code(s): N17.9 - Acute kidney failure, unspecified (7) Hypernatremia: Status: Acute (8) HTN (hypertension): Status: Acute Qualifiers: Hypertension type: essential hypertension Qualified Code(s): I10 - Essential (primary) hypertension (9) Anxiety: Status: Acute
--- NOTE | 2020-03-15 12:39 | W.DIS.FURT ---
Summary of Discharge Discharge Summary of Date Date of Exam: 03/15/20 Admission Date Date of Admission: 03/04/20 Admission Diagnosis Hospital Course: Mr. Ellison is a 79y/o male with a PMH of HTN, GERD, COPD ,anxiety presented with fever, cough, weakness and diarrhea. Patient does have O2 at home but does not use it all the time but lately has been. Patient's is currently in [place] with covid infection and patient has been exposed. Patient reports increased SOB at rest and with exertion. He was found to be COVID positive in the ED. He was started on IV abx, steroids, Remdesivir, duonebs and albuterol. Patient was initially on 4-5 L NC but then had to transitioned to hi-flow O2 to keep his sats > 90%. Patient's labs showed acute on chronic renal failure, elevated CRP, neg cardiac enzymes, d-dimer (-). CXR showed bilateral opacities concerning for pneumonia. Patient was also started on gentle hydration. During his hospital course, patient continued to require increased FiO2 on heated hi-flow O2. He also had hypercapnia and was put in BiPAP intermittently. He also started being restless and very agitated especially at night. He was experiencing ICU delirium. He was given ativan prn and also haldol prn. 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 He also broke down O2 masks and even the BiPAP masks. Patient CXR continued to show worsening infection. He also received 2 doses of plasma therapy. On the day of transfer, patient was noted to be more agitated and also was having O2 sats in the mid 80s with max hi-flow O2. Patient was placed back on BiPAP. Patient's family was updated regarding patient's condition and decision was made to intubate and transfer the patient to [facility]. Patient remains in critical condition, time spent reviewing labs/imaging, clinical assessment, discussing with other providers, documentation and decision making 31-74 mins. Vital Signs: Vital Signs (72 hours) 03/12/20 13:00 03/12/20 14:00 03/12/20 15:00 Temperature Pulse Rate 69 69 63 Respiratory Rate 28 H 24 24 Blood Pressure 115/61 108/56 108/56 O2 Sat by Pulse Oximetry 97 97 96 03/12/20 16:00 03/12/20 17:00 03/12/20 18:00 Temperature 97.8 F Pulse Rate 70 62 69 Respiratory Rate 25 H 16 19 Blood Pressure 114/57 148/70 148/70 O2 Sat by Pulse Oximetry 90 L 92 L 94 L 03/12/20 19:00 03/12/20 19:02 03/12/20 20:00 Temperature Pulse Rate 77 74 89 Respiratory Rate 18 17 19 Blood Pressure 158/105 168/77 167/76 O2 Sat by Pulse Oximetry 93 L 93 L 86 L 03/12/20 21:00 03/12/20 21:58 03/12/20 22:00 Temperature 98.0 F Pulse Rate 99 H 74 Respiratory Rate 22 21 20 Blood Pressure 149/86 136/63 O2 Sat by Pulse Oximetry 87 L 94 L 03/12/20 23:00 03/13/20 00:00 03/13/20 01:00 Temperature 97.7 F Pulse Rate 61 100 H 66 Respiratory Rate 22 18 18 Blood Pressure 138/70 137/73 136/67 O2 Sat by Pulse Oximetry 95 88 L 97 03/13/20 02:00 03/13/20 03:00 03/13/20 04:00 Temperature 97.5 F L Pulse Rate 58 L 62 89 Respiratory Rate 18 18 22 Blood Pressure 154/72 155/93 164/69 O2 Sat by Pulse Oximetry 97 93 L 89 L 03/13/20 05:00 03/13/20 06:00 03/13/20 07:00 Temperature 98.6 F Pulse Rate 84 90 95 H Respiratory Rate 20 22 26 H Blood Pressure 138/76 150/92 149/89 O2 Sat by Pulse Oximetry 89 L 91 L 92 L 03/13/20 08:00 03/13/20 08:09 03/13/20 09:00 Temperature Pulse Rate 66 64 Respiratory Rate 19 21 Blood Pressure 152/72 152/72 132/62 O2 Sat by Pulse Oximetry 90 L 92 L 03/13/20 10:00 03/13/20 11:00 03/13/20 12:00 Temperature 98.5 F Pulse Rate 62 61 85 Respiratory Rate 19 16 19 Blood Pressure 126/60 137/67 131/70 O2 Sat by Pulse Oximetry 93 L 94 L 90 L 03/13/20 13:00 03/13/20 13:40 03/13/20 14:00 Temperature Pulse Rate 74 78 Respiratory Rate 17 18 Blood Pressure 138/72 127/70 O2 Sat by Pulse Oximetry 91 L 90 L 94 L 03/13/20 15:00 03/13/20 16:00 03/13/20 17:00 Temperature 98.4 F Pulse Rate 92 H 95 H 95 H Respiratory Rate 21 21 Blood Pressure 131/71 121/90 156/85 O2 Sat by Pulse Oximetry 89 L 88 L 86 L 03/13/20 17:01 03/13/20 18:00 03/13/20 19:00 Temperature Pulse Rate 72 74 85 Respiratory Rate 18 18 20 Blood Pressure 156/85 137/71 146/81 O2 Sat by Pulse Oximetry 87 L 94 L 91 L 03/13/20 20:00 03/13/20 20:01 03/13/20 21:00 Temperature 98.1 F Pulse Rate 96 H 93 H 70 Respiratory Rate 28 H 20 19 Blood Pressure 122/86 122/86 125/63 O2 Sat by Pulse Oximetry 84 L 85 L 94 L 03/13/20 21:42 03/13/20 22:00 03/13/20 23:00 Temperature Pulse Rate 73 71 Respiratory Rate 22 19 18 Blood Pressure 118/56 116/55 O2 Sat by Pulse Oximetry 94 L 93 L 03/14/20 00:00 03/14/20 01:00 03/14/20 02:00 Temperature 97.8 F Pulse Rate 83 93 H 91 H Respiratory Rate 19 20 22 Blood Pressure 117/71 126/77 126/69 O2 Sat by Pulse Oximetry 89 L 87 L 89 L 03/14/20 03:00 03/14/20 04:00 03/14/20 05:00 Temperature 98.2 F Pulse Rate 92 H 78 90 Respiratory Rate 22 17 21 Blood Pressure 131/71 140/74 141/81 O2 Sat by Pulse Oximetry 91 L 87 L 88 L 03/14/20 06:00 03/14/20 07:04 03/14/20 08:00 Temperature 98.2 F Pulse Rate 87 86 73 Respiratory Rate 21 22 19 Blood Pressure 113/86 127/77 120/57 O2 Sat by Pulse Oximetry 88 L 90 L 91 L 03/14/20 09:00 03/14/20 10:00 03/14/20 11:00 Temperature 97.3 F L Pulse Rate 71 66 76 Respiratory Rate 19 19 19 Blood Pressure 107/57 119/58 132/61 O2 Sat by Pulse Oximetry 94 L 92 L 92 L 03/14/20 11:59 03/14/20 12:00 03/14/20 13:00 Temperature Pulse Rate 87 85 89 Respiratory Rate 18 14 21 Blood Pressure 136/86 136/77 O2 Sat by Pulse Oximetry 87 L 89 L 92 L 03/14/20 13:08 03/14/20 13:13 03/14/20 13:14 Temperature Pulse Rate 94 H 98 H 89 Respiratory Rate 27 H 24 20 Blood Pressure 129/100 95/52 99/57 O2 Sat by Pulse Oximetry 92 L 88 L 89 L 03/14/20 13:16 03/14/20 14:00 03/14/20 14:20 Temperature Pulse Rate 90 82 82 Respiratory Rate 23 Blood Pressure 120/61 116/68 O2 Sat by Pulse Oximetry 93 L 93 L 93 L 03/14/20 15:00 03/14/20 15:04 03/14/20 16:00 Temperature 97.9 F Pulse Rate 72 67 Respiratory Rate 21 21 Blood Pressure 106/61 116/65 O2 Sat by Pulse Oximetry 93 L 91 L 03/14/20 17:00 03/14/20 18:00 03/14/20 19:00 Temperature 97.6 F Pulse Rate 134 H 85 89 Respiratory Rate 20 Blood Pressure 113/83 122/75 113/78 O2 Sat by Pulse Oximetry 88 L 82 L 85 L 03/14/20 20:00 03/14/20 21:00 03/14/20 22:00 Temperature Pulse Rate 88 86 79 Respiratory Rate 36 H 30 H 26 H Blood Pressure 119/78 110/66 107/71 O2 Sat by Pulse Oximetry 86 L 90 L 90 L 03/14/20 22:27 03/14/20 23:00 03/15/20 00:00 Temperature 97.8 F Pulse Rate 86 91 H 88 Respiratory Rate 19 19 Blood Pressure 112/67 111/76 O2 Sat by Pulse Oximetry 88 L 81 L 88 L 03/15/20 01:00 03/15/20 02:00 03/15/20 03:00 Temperature Pulse Rate 89 87 94 H Respiratory Rate 20 27 H 28 H Blood Pressure 117/76 119/80 129/57 O2 Sat by Pulse Oximetry 85 L 85 L 84 L 03/15/20 04:00 03/15/20 05:00 03/15/20 06:00 Temperature 98.0 F Pulse Rate 99 H 103 H 108 H Respiratory Rate 37 H 28 H 35 H Blood Pressure 117/58 118/65 104/63 O2 Sat by Pulse Oximetry 83 L 85 L 83 L 03/15/20 07:00 03/15/20 08:01 03/15/20 09:00 Temperature 98.4 F Pulse Rate 91 H 98 H 113 H Respiratory Rate 27 H 39 H 43 H Blood Pressure 96/51 117/62 O2 Sat by Pulse Oximetry 88 L 83 L 84 L 03/15/20 09:06 03/15/20 10:01 Temperature Pulse Rate 111 H Respiratory Rate 29 H Blood Pressure 131/100 O2 Sat by Pulse Oximetry 91 L 89 L Labs: Laboratory Last Values WBC 10.2 X10^3/uL (3.6-10.0) H 03/15/20 04:55 RBC 4.69 X10^6/uL (4.7-6.0) L 03/15/20 04:55 Hgb 13.8 g/dL (13.5-18.0) 03/15/20 04:55 Hct 41.5 % (42.0-54.0) L 03/15/20 04:55 MCV 88.3 fL (80.0-100.0) 03/15/20 04:55 MCH 29.3 pg (27.0-34.0) 03/15/20 04:55 MCHC 33.2 g/dL (33.0-35.0) 03/15/20 04:55 RDW 14.1 % (11.6-16.5) 03/15/20 04:55 Plt Count 185 X10^3/uL (150.0-450.0) 03/15/20 04:55 Plt Count Comment Adequate (ADEQUATE) 03/12/20 04:59 MPV 8.7 fL (7.4-11.0) 03/15/20 04:55 Neut % (Auto) 86.2 % (42.0-75.0) H 03/15/20 04:55 Lymph % (Auto) 8.7 % (21.0-51.0) L 03/15/20 04:55 [place] % (Auto) 4.3 % (0.0-13.0) 03/15/20 04:55 Eos % (Auto) 0.7 % (0.9-2.9) L 03/15/20 04:55 Baso % (Auto) 0.1 % (0.2-1.0) L 03/15/20 04:55 Neut # (Auto) 8.8 x10^3/uL (2.2-4.8) H 03/15/20 04:55 Lymph # (Auto) 0.9 X10^3/uL (1.3-2.9) L 03/15/20 04:55 [place] # (Auto) 0.4 x10^3/uL (0.3-0.8) 03/15/20 04:55 Eos # (Auto) 0.1 x10^3/uL (0.0-0.2) 03/15/20 04:55 Baso # (Auto) 0.0 X10^3/uL (0.0-0.1) 03/15/20 04:55 Absolute Nucleated RBC 0.1 /100WBC 03/15/20 04:55 Total Counted 100 03/12/20 04:59 Neutrophils % (Manual) 90 % (39-76) H 03/12/20 04:59 Lymphocytes % (Manual) 7 % (13-43) L 03/12/20 04:59 Monocytes % (Manual) 3 % (4-9) L 03/12/20 04:59 Plt Morphology Comment Normal (NORMAL) 03/12/20 04:59 RBC Morphology Normal (NORMAL) 03/12/20 04:59 D-Dimer 0.46 ug/ml (0.0-0.57) 03/04/20 14:40 Sample Site Left brachial 03/15/20 08:32 ABG pH 7.540 (7.35-7.45) H 03/15/20 08:32 ABG pCO2 50.0 mmHg (35.0-45.0) H 03/15/20 08:32 ABG pO2 45.0 mmHg (80.0-100.0) L* 03/15/20 08:32 ABG HCO3 42.8 mmol/L (22-26) H* 03/15/20 08:32 ABG O2 Saturation 86.0 % (90-100) L 03/15/20 08:32 ABG Base Excess 17.8 mmol/L (-2.0-2.0) H 03/15/20 08:32 Capo Test Na 03/15/20 08:32 A-a Gradient 520.0 mmHg 03/15/20 08:32 FiO2 88.0 03/15/20 08:32 Blood Gas Comments [place] well aw 03/15/20 08:32 Sodium 146 mmol/L (136-145) H 03/15/20 04:55 Corrected Sodium 147 mmol/L (136-145) H 03/15/20 04:55 Potassium 3.5 mmol/L (3.5-5.1) 03/15/20 04:55 Chloride 105 mmol/L (98-107) 03/15/20 04:55 Carbon Dioxide 36.4 mmol/L (21-32) H 03/15/20 04:55 BUN 44 mg/dL (7-18) H 03/15/20 04:55 Creatinine 1.80 mg/dL (0.70-1.30) H 03/15/20 04:55 Est GFR (MDRD) Af Amer 47 (>60) L 03/15/20 04:55 Est GFR (MDRD) Non-Af 39 (>60) L 03/15/20 04:55 Glucose 123 mg/dL (65-99) H 03/15/20 04:55 POC Glucose (mg/dL) 120 mg/dL (65-99) H 03/15/20 06:10 Calcium 8.6 mg/dL (8.5-10.1) 03/15/20 04:55 Corrected Calcium 9.9 mg/dL (8.5-10.1) 03/15/20 04:55 Magnesium 2.4 mg/dL (1.7-2.9) 03/15/20 04:55 Ferritin 1554 ng/mL (26-388) H 03/04/20 14:40 Total Bilirubin 1.20 mg/dL (0.2-1.0) H 03/15/20 04:55 AST 54 Units/L (15-37) H 03/15/20 04:55 ALT 60 Units/L (12-78) 03/15/20 04:55 Alkaline Phosphatase 44 Units/L (46-116) L 03/15/20 04:55 Creatine Kinase 212 Units/L (39-308) 03/05/20 09:40 CK-MB (CK-2) < 1.0 ng/mL (0-4.0) 03/05/20 09:40 CK/CKMB % Calc 0.5 % (<4) 03/05/20 09:40 Troponin I < 0.02 ng/mL (0-1.5) 03/05/20 09:40 C-Reactive Protein 30.60 mg/L (0-3.0) H 03/15/20 04:55 Total Protein 6.4 g/dL (6.4-8.2) 03/15/20 04:55 Albumin 2.4 g/dL (3.4-5.0) L 03/15/20 04:55 Globulin 4.0 g/dL (2.5-4.5) 03/15/20 04:55 Albumin/Globulin Ratio 0.6 Ratio (1.1-2.1) L 03/15/20 04:55 Specimen Type Catherized urine 03/08/20 07:20 Urine Color Yellow (YELLOW) 03/08/20 07:20 Urine Appearance Clear (CLEAR) 03/08/20 07:20 Urine pH 5.0 (5.0 - 8.0) 03/08/20 07:20 Ur Specific [place] 1.015 (1.000-1.030) 03/08/20 07:20 Urine Protein 1+ (NEGATIVE) 03/08/20 07:20 Urine Glucose (UA) 4+ (NEGATIVE) 03/08/20 07:20 Urine Ketones Negative (NEGATIVE) 03/08/20 07:20 Urine Occult Blood 3+ (NEGATIVE) 03/08/20 07:20 Urine Nitrite Negative (NEGATIVE) 03/08/20 07:20 Urine Bilirubin Negative (NEGATIVE) 03/08/20 07:20 Urine Urobilinogen Normal (NORMAL) 03/08/20 07:20 Ur Leukocyte Esterase Negative (NEGATIVE) 03/08/20 07:20 Urine RBC 3-5 /HPF (0-3) A 03/08/20 07:20 Urine WBC None seen /HPF (0-5) 03/08/20 07:20 Ur Squamous Epith Cells Rare /HPF (NEGATIVE) 03/08/20 07:20 Urine Bacteria Negative /HPF (NEGATIVE) 03/08/20 07:20 Ur Culture Indicated? No/not indicated 03/08/20 07:20 Ur Random Sodium 41 mmol/L (40-220) 03/10/20 16:04 Influenza Type A Ag Negative-presumptive (NEGATIVE) 03/04/20 14:29 Influenza Type B Ag Negative-presumptive (NEGATIVE) 03/04/20 14:29 SARS-CoV-2 (PCR) Positive (NEGATIVE) A 03/04/20 14:29 S. pyogenes (TEM-PCR) Not detected (NOT DETECT) 03/04/20 14:29 Blood Type O POSITIVE 03/08/20 09:05 Reason For Visit: COVID PNEUMONIA, ACUTE RENAL FAILURE Discharge Date Discharge Date: 03/15/20 Discharge Diagnosis All Active Problems (Updated 03/10/20 @ 14:20 by Krupa Gonzalez) Acute respiratory failure with hypoxia and hypercapnia (Acute) Delirium (Acute) Agitation (Acute) Hypernatremia (Acute) Anxiety (Acute) HTN (hypertension) (Acute) Acute hypoxemic respiratory failure due to COVID-19 (Acute) Pneumonia due to 2019 novel coronavirus (Acute) Acute renal failure (Acute) Plan of Treatment: Continue with present treatment and follow up plan. Pt is to keep follow up appointment as instructed and take medications as ordered. Discharge Medications Discharge Medications: morphine Allergy (Verified 03/04/20 14:20) zolpidem [From Ambien] Allergy (Verified 03/04/20 14:20) CONTINUE taking the following medications albuterol sulfate 2.5 mg INHALATION PRN PRN 03/04/20 [History] alprazolam [Xanax] 1 mg PO TID PRN 03/04/20 [History] amlodipine 5 mg PO DAILY 03/04/20 [History] aspirin 81 mg PO DAILY 03/04/20 [History] atorvastatin 10 mg PO HS 03/04/20 [History] brimonidine-timolol [Combigan] 1 drp OPHTHALMIC (EYE) DAILY 03/04/20 [History] erythromycin 1 applic OPHTHALMIC (EYE) HS 03/04/20 [History] fenofibrate nanocrystallized [Tricor] 145 mg PO HS 03/04/20 [History] furosemide 40 mg PO DAILY PRN 03/04/20 [History] hydroxyzine HCl 25 mg PO Q8H PRN 10/02/20 [History] loteprednol etabonate [Lotemax] 1 drp OPHTHALMIC (EYE) DAILY 03/04/20 [History] pantoprazole 40 mg PO DAILY 03/04/20 [History] potassium chloride 20 meq PO DAILY 03/04/20 [History] tamsulosin 0.4 mg PO HS 03/04/20 [History] Discharge Disposition Discharge Disposition: Transfer to [facility] Discharge Condition: Guarded
[2020-03-15 13:17] VITALS: BP 63/45
== END 2020-03-15 11:35 | disposition short-term general hospital (02) | DRG 177 ==
LOC: ER 14:03 → ICU 16:15
PROVIDERS: ADMIT Internal Medicine; ATTEND Internal Medicine
DX: E11.8 Type 2 diabetes mellitus with unspecified complications; I87.2 Venous insufficiency (chronic) (peripheral); U07.1 COVID-19; R26.81 Unsteadiness on feet; R13.10 Dysphagia, unspecified; J12.89 Other viral pneumonia; K21.9 Gastro-esophageal reflux disease without esophagitis; I10 Essential (primary) hypertension; J96.01 Acute respiratory failure with hypoxia; Z78.1 Physical restraint status; R41.0 Disorientation, unspecified; F41.8 Other specified anxiety disorders; E87.0 Hyperosmolality and hypernatremia; N17.9 Acute kidney failure, unspecified; J44.9 Chronic obstructive pulmonary disease, unspecified